=== PATIENT | male | born 1940 ===

== ENCOUNTER 2019-11-19 08:16 | Outpatient (REF) | payer MEDICARE, SELFPAY ==
[2019-11-19 11:03] LABS: Basophils Percent Auto 0.6 % (0-2); Eosinophils Absolute Auto 0.4 X10*3/uL (0.0-0.4); Eosinophils Percent Auto 6.4 % (0-4); Hematocrit 35.1 % (42-52); Hemoglobin 11.2 g/dl (14.0-18.0); Imm Gran Abs Auto 0.01 X10*3/uL (0.00-0.03); Imm Gran Pct Auto 0.2 % (0.0-0.4); Immature Retic Fraction 28.8 % (2.3-13.4); MANUAL DIFF FLAG NO; Mean Corpuscular HGB Conc 31.9 g/dl (31.0-36.0); Mean Corpuscular Hemoglobin 25.1 pg (27.0-33.0); Mean Corpuscular Volume 78.5 fL (80-98); Monocytes Absolute Auto 0.6 X10*3/uL (0.1-1.2); Neutrophils Absolute Auto 3.5 X10*3/uL (2.0-8.3); Neutrophils Percent Auto 53.8 % (45-73); Platelet Count 284 X10*3/uL (160-400); Red Blood Count 4.47 X10*6/uL (4.60-5.80); Red Cell Distribution Width 17.2 % (11.0-16.0); Retic HGB Equivalent 25.1 pg (30.0-35.0); Reticulocyte Percent 1.1 % (0.5-1.8); Reticulocytes Absolute 0.047 X10*6/uL (0.026-0.095); White Blood Count 6.5 X10*3/uL (4.8-10.8)
[2019-11-19 11:33] LABS: Cholesterol 150 mg/dL; HDL Cholesterol 42 mg/dL; Iron 24 mcg/dL (45-160); LDL Cholesterol Calculated 90 mg/dl; Percent Iron Saturation 6 % (15-50); Total Iron Binding Capacity 388 mcg/dL (228-428); Triglycerides 94 mg/dL; Unsaturated Iron Binding 364 ug/dL
[2019-11-19 11:54] LABS: Ferritin 21 ng/mL (20-250); Thyroid Stimulating Hormone 2.15 mIU/mL (0.32-4.0)
[2019-11-19 12:15] LABS: Folate 7.4 ng/mL (> or = 4.0); Vitamin B12 461 pg/mL (200-900)
== END 2019-11-19 08:17 | disposition home or self-care (01) ==
LOC: HO.HSH4W 08:16
PROVIDERS: Visit Provider Internal Medicine
DX: E78.5 Hyperlipidemia, unspecified (principal); I10 Essential (primary) hypertension
CPT/HCPCS: 36415; 80061; 82607; 82728; 82746; 83540; 84443; 85025; 85045

== ENCOUNTER 2019-11-19 10:03 | Emergency (ER) | payer OTHER, SELFPAY ==
[2019-11-19] VITALS (7 sets, daily range): BP systolic 108–141; BP diastolic 50–84; PULSE 58–85; RESP 17–20; TEMP 36.5–37.1; O2SAT 95–98; BMI 37.0
--- NOTE | 2019-11-19 10:11 | ECG_ITS ---
Test Reason : WEAKNESS Blood Pressure : / mmHG Vent. Rate : 060 BPM Atrial Rate : 071 BPM P-R Int : 000 ms QRS Dur : 086 ms QT Int : 442 ms P-R-T Axes : 000 000 -31 degrees QTc Int : 442 ms Atrial fibrillation Nonspecific ST abnormality Low voltage QRS RSR' or QR pattern in V1 suggests right ventricular conduction delay Abnormal ECG When compared with ECG of 24-OCT-2018 14:08, Heart rate has decreased Referred By: Vernell Ceballos Electronically Signed By:PHILL HOWARD MD
--- NOTE | 2019-11-19 10:14 | ED_ITS ---
HPI - Syncope General Chief Complaint: Syncope Stated Complaint: SYNCOPAL EPISODE ON TOILET Time Seen by Provider: 11/19/19 10:14 Source: patient and EMS Mode of arrival: EMS Limitations: altered mental status (dementia) History of Present Illness HPI narrative: 79 yo male with hx of HTN, CAD, HPL, DVT on xarelto, afib here with witnessed syncope no trauma was working with PT and had large BM, then had syncopal episode witnessed no trauma, currenlty the patient has no complaints MD complaint: loss of consciousness Onset (ago): minute(s) -: second(s) Prodromal symptoms: other (having BM) Witnessed: Yes - by Other (staff/PT) Context: other (after BM) Injuries sustained associated with event: none Current symptoms: none Treatments prior to arrival: none Related Data Allergies Allergy/AdvReac Type Severity Reaction Status Date / Time No Known Allergies Allergy Verified 11/19/19 10:15 [No Known Allergies*] Review of Systems Review of Systems: ROS unable to be obtained due to altered mental status [facility] Past Medical History Medical History (Updated 11/19/19 @ 14:09 by Vernell Ceballos DO) A-fib CAD (coronary artery disease) Dementia DVT (deep venous thrombosis) HTN (hypertension) Surgical History (Updated 11/19/19 @ 10:16 by Vernell Ceballos DO) Hx of cholecystectomy S/P IVC filter Social History Social History (Updated 11/19/19 @ 10:17 by Vernell Ceballos DO) Alcohol intake: never Smoking Status: Former smoker Use of substances other than those prescribed or required for medical reasons: No Advance Directives: No Advance Directives Information Provided: No Physical Exam Vital Signs and I&O and Narrative: Vital Signs and I&O: Vital Signs Temp 97.7 F 11/19/19 12:16 Pulse 78 11/19/19 13:49 Resp 17 11/19/19 12:16 BP 140/77 H 11/19/19 13:49 Pulse Ox 97 11/19/19 12:16 Intake & Output 11/18/19 11/19/19 11/19/19 18:59 06:59 18:59 Intake Total 500 / 500 Balance 500 / 500 Weight 110.677 kg Intake: Intake, IV Amoun t 500 / 500 0.9 % Sodium C hloride 500 ml @ 500 / 500 1000 mls/hr IV .Q30M [facility] Rx#: [id number] Body Mass Index 37.0 Appearance: Alert. but confused No acute distress. Eyes: Pupils equal, round and reactive to light. ENT: Pharynx normal. Neck: Normal inspection. Neck supple. CVS: irregular, bradycardic Pulses normal. Respiratory: No respiratory distress. Breath sounds normal. Abdomen: Soft and nontender. Skin: Skin warm and dry. Normal skin color. Normal skin turgor. Extremities: No lower extremity edema. No lower extremity edema. Neuro: alert but confused. No motor deficit. No sensory deficit. Course Course Course Narrative: will repeat troponin, gentle hydration ordered, the patient has no complaints, negative ortho VS, if repeat trop negative will DC back to facility Reevaluation(s) Reevaluation #1: repeat troponin negative Reevaluation #2: UA negative for infection, stable for DC MDM - Syncope Lab Data Result diagrams: 11/19/19 11:08 11/19/19 11:09 Labs: Lab Results 11/19/19 11/19/19 11/19/19 Range/Units 11:08 11:08 11:09 WBC 11.3 H (4.8-10.8) X10*3/uL RBC 4.37 L (4.60-5.80) X10*6/uL Hgb 10.6 L (14.0-18.0) g/dl Hct 34.8 L (42-52) % MCV 79.6 L (80-98) fL MCH 24.3 L (27.0-33.0) pg MCHC 30.5 L (31.0-36.0) g/dl RDW 17.2 H (11.0-16.0) % Plt Count 263 (160-400) X10*3/uL MPV 9.4 (9.4-12.4) fL Immature Gran % (Auto) 0.4 (0.0-0.4) % Neut % (Auto) 79.7 H (45-73) % Lymph % (Auto) 10.5 L (20-40) % [place] % (Auto) 7.6 (2-11) % Eos % (Auto) 1.5 (0-4) % Baso % (Auto) 0.3 (0-2) % Neut # (Auto) 9.0 H (2.0-8.3) X10*3/uL Lymph # (Auto) 1.2 (1.2-4.9) X10*3/uL [place] # (Auto) 0.9 (0.1-1.2) X10*3/uL Eos # (Auto) 0.2 (0.0-0.4) X10*3/uL Baso # (Auto) 0.0 (0.0-0.2) X10*3/uL Abs Immat Gran (auto) 0.04 H (0.00-0.03) X10*3/uL Absolute Nucleated RBC 0.000 (0.0-0.012) X10*3/uL Nucleated RBC % (auto) 0.0 (0.0-0.2) /100WBC Hold Blue Top SEE NOTE Sodium 139 (135-145) mmol/L Potassium 4.1 (3.3-5.1) mmol/l Chloride 107 (96-108) mmol/L Carbon Dioxide 24 (22-29) mmol/L Anion Gap 12 (12-20) BUN 18 H (9-16) mg/dL Creatinine 1.42 H (0.5-1.4) mg/dL Estim Creat Clear Calc 49.2 Estimated GFR 48 Random Glucose 106 (60-115) mg/dL Calcium 8.8 (8.4-10.2) mg/dL Magnesium 2.2 (1.6-2.6) mg/dL Total Bilirubin 0.6 (0.0-1.0) mg/dL Direct Bilirubin 0.2 (0.0-0.5) mg/dL AST 14 (5-37) U/L ALT 21 (0-40) U/L Alkaline Phosphatase 68 (39-117) U/L Troponin I High Sens (<3.5-35.0) ng/L Total Protein 6.8 (6.5-8.0) g/dL Albumin 4.0 (3.5-5.0) g/dL Urine Color Urine Appearance Urine pH (5.0-8.0) Ur Specific Harold (1.005-1.025) Urine Protein (NEG-TRACE) MG/DL Urine Glucose (UA) (NEG) MG/DL Urine Ketones (NEG) MG/DL Urine Blood (NEG) Urine Nitrite (NEG) Ur Leukocyte Esterase (NEG) Urine RBC (0) /HPF Urine WBC (0-4) /HPF Ur Squamous Epith Cells /LPF Urine Bacteria /LPF Urine Sperm 11/19/19 11/19/19 11/19/19 Range/Units 11:09 14:08 15:09 WBC (4.8-10.8) X10*3/uL RBC (4.60-5.80) X10*6/uL Hgb (14.0-18.0) g/dl Hct (42-52) % MCV (80-98) fL MCH (27.0-33.0) pg MCHC (31.0-36.0) g/dl RDW (11.0-16.0) % Plt Count (160-400) X10*3/uL MPV (9.4-12.4) fL Immature Gran % (Auto) (0.0-0.4) % Neut % (Auto) (45-73) % Lymph % (Auto) (20-40) % [place] % (Auto) (2-11) % Eos % (Auto) (0-4) % Baso % (Auto) (0-2) % Neut # (Auto) (2.0-8.3) X10*3/uL Lymph # (Auto) (1.2-4.9) X10*3/uL [place] # (Auto) (0.1-1.2) X10*3/uL Eos # (Auto) (0.0-0.4) X10*3/uL Baso # (Auto) (0.0-0.2) X10*3/uL Abs Immat Gran (auto) (0.00-0.03) X10*3/uL Absolute Nucleated RBC (0.0-0.012) X10*3/uL Nucleated RBC % (auto) (0.0-0.2) /100WBC Hold Blue Top Sodium (135-145) mmol/L Potassium (3.3-5.1) mmol/l Chloride (96-108) mmol/L Carbon Dioxide (22-29) mmol/L Anion Gap (12-20) BUN (9-16) mg/dL Creatinine (0.5-1.4) mg/dL Estim Creat Clear Calc Estimated GFR Random Glucose (60-115) mg/dL Calcium (8.4-10.2) mg/dL Magnesium (1.6-2.6) mg/dL Total Bilirubin (0.0-1.0) mg/dL Direct Bilirubin (0.0-0.5) mg/dL AST (5-37) U/L ALT (0-40) U/L Alkaline Phosphatase (39-117) U/L Troponin I High Sens 9.3 7.8 (<3.5-35.0) ng/L Total Protein (6.5-8.0) g/dL Albumin (3.5-5.0) g/dL Urine Color YELLOW Urine Appearance CLEAR Urine pH 6.0 (5.0-8.0) Ur Specific Harold 1.020 (1.005-1.025) Urine Protein NEG (NEG-TRACE) MG/DL Urine Glucose (UA) NEG (NEG) MG/DL Urine Ketones NEG (NEG) MG/DL Urine Blood 3+ H (NEG) Urine Nitrite NEG (NEG) Ur Leukocyte Esterase NEG (NEG) Urine RBC 15-29 H (0) /HPF Urine WBC 0 (0-4) /HPF Ur Squamous Epith Cells TRACE /LPF Urine Bacteria 1+ /LPF Urine Sperm NOTED ECG Data ECG interpretation date: 11/19/19 ECG interpretation time: 10:14 Interpretation: Rate: 60 Rhythm: atrial fibrillation [place]: normal Normal QRS complex. ST T wave : nonspecific lateral leads qTC:normal prior studies: no acute ischemia unchanged 2019 The study has been interpreted contemporaneously by me. . Discharge Plan Discharge Clinical Impression: Vasovagal syncope, Dehydration Patient Disposition: er [facility] Instructions: Dehydration (ED), Syncope (ED) Referrals: Rdoolfo Blakely MD [Primary Care Provider] - 2 days (if not better)
--- NOTE | 2019-11-19 10:46 | PC.NURSE ---
pt's daughter to be called with questions and updates. Luba Butler [phone]
[2019-11-19 11:17] LABS: MANUAL DIFF FLAG NO
[2019-11-19 11:21] LABS: Basophils Percent Auto 0.3 % (0-2); Eosinophils Absolute Auto 0.2 X10*3/uL (0.0-0.4); Eosinophils Percent Auto 1.5 % (0-4); Hematocrit 34.8 % (42-52); Hemoglobin 10.6 g/dl (14.0-18.0); Imm Gran Abs Auto 0.04 X10*3/uL (0.00-0.03); Imm Gran Pct Auto 0.4 % (0.0-0.4); Lymphocytes Absolute Auto 1.2 X10*3/uL (1.2-4.9); Lymphocytes Percent Auto 10.5 % (20-40); Mean Corpuscular HGB Conc 30.5 g/dl (31.0-36.0); Mean Corpuscular Hemoglobin 24.3 pg (27.0-33.0); Mean Corpuscular Volume 79.6 fL (80-98); Mean Platelet Volume 9.4 fL (9.4-12.4); Monocytes Absolute Auto 0.9 X10*3/uL (0.1-1.2); Monocytes Percent Auto 7.6 % (2-11); Neutrophils Percent Auto 79.7 % (45-73); Platelet Count 263 X10*3/uL (160-400); Red Blood Count 4.37 X10*6/uL (4.60-5.80); Red Cell Distribution Width 17.2 % (11.0-16.0); White Blood Count 11.3 X10*3/uL (4.8-10.8)
[2019-11-19 11:44] LABS: Alanine Aminotransferase 21 U/L (0-40); Alkaline Phosphatase 68 U/L (39-117); Anion Gap 12 (12-20); Aspartate Amino Transferase 14 U/L (5-37); Bilirubin Direct 0.2 mg/dL (0.0-0.5); Bilirubin Total 0.6 mg/dL (0.0-1.0); Blood Urea Nitrogen 18 mg/dL (9-16); Calcium 8.8 mg/dL (8.4-10.2); Carbon Dioxide 24 mmol/L (22-29); Chloride 107 mmol/L (96-108); Creatinine Clr Calc Pharmacy 49.2; Estimated Glomerular Filt Rate 48; Glucose Random 106 mg/dL (60-115); Magnesium 2.2 mg/dL (1.6-2.6); Potassium 4.1 mmol/l (3.3-5.1); Sodium 139 mmol/L (135-145); Total Protein 6.8 g/dL (6.5-8.0)
[2019-11-19 11:48] LABS: Troponin-I High Sensitivity 9.3 ng/L (<3.5-35.0)
[2019-11-19] MEDS: 0.9 % Sodium Chloride 500 ML 1000 ML IV (12:23)
[2019-11-19 14:40] LABS: Troponin-I High Sensitivity 7.8 ng/L (<3.5-35.0)
[2019-11-19 15:18] LABS: Glucose Urine UA NEG (NEG); Leukocyte Esterase Urine NEG (NEG); Nitrite Urine NEG (NEG); Urine Blood 3+ (NEG); Urine Ketones NEG (NEG); Urine Protein NEG (NEG-TRACE)
[2019-11-19 15:20] LABS: Appearance Urine CLEAR; Color Urine YELLOW
[2019-11-19 15:29] LABS: WBC Urine 0 /HPF (0-4)
[2019-11-19 15:30] LABS: Bacteria Urine 1+ /LPF; Sperm Urine NOTED; Squamous Epithelial Cell Urine TRACE /LPF
== END 2019-11-19 16:34 ==
PROVIDERS: Emergency Provider Emergency Medicine; PCP Internal Medicine Interventional Cardiology
DX: R55 Syncope and collapse (principal); E86.0 Dehydration; Z87.891 Personal history of nicotine dependence; Z79.899 Other long term (current) drug therapy
CPT/HCPCS: 36415; 80048; 80076; 81001; 83735; 84484; 85025; 93005; 99285

== ENCOUNTER 2019-11-21 06:51 | Outpatient (REF) | payer OTHER, MEDICARE, SELFPAY ==
[2019-11-21 13:56] LABS: Alanine Aminotransferase 17 U/L (0-40); Albumin Level 3.6 g/dL (3.5-5.0); Alkaline Phosphatase 60 U/L (39-117); Anion Gap 12 (12-20); Aspartate Amino Transferase 14 U/L (5-37); Bilirubin Total 0.6 mg/dL (0.0-1.0); Blood Urea Nitrogen 17 mg/dL (9-16); Calcium 8.4 mg/dL (8.4-10.2); Carbon Dioxide 24 mmol/L (22-29); Chloride 107 mmol/L (96-108); Estimated Glomerular Filt Rate > 60; Glucose Fasting 83 mg/dL (60-99); Potassium 3.9 mmol/l (3.3-5.1); Sodium 139 mmol/L (135-145); Total Protein 6.2 g/dL (6.5-8.0)
== END 2019-11-21 06:52 | disposition home or self-care (01) ==
LOC: HO.HSH4W 06:51
PROVIDERS: Visit Provider Internal Medicine
DX: I25.10 Atherosclerotic heart disease of native coronary artery without angina pectoris (principal); I10 Essential (primary) hypertension
CPT/HCPCS: 80053

== ENCOUNTER 2020-01-15 09:19 | Emergency (ER) | payer OTHER, MEDICARE, SELFPAY ==
--- NOTE | 2020-01-15 09:17 | ED_ITS ---
HPI - Extremity Injury (Lower) General Chief Complaint: General Medical Stated Complaint: hip pain Time Seen by Provider: 01/15/20 09:25 Source: EMS Mode of arrival: EMS Limitations: other (dementia) History of Present Illness HPI Narrative: Patient is demented, home health aid called EMS for right hip pain, atraumatic Onset (ago): hour(s) Injury: Right: hip Relieving factors: nothing Exacerbating factors: nothing Related Data Allergies Allergy/AdvReac Type Severity Reaction Status Date / Time No Known Allergies Allergy Verified 11/19/19 10:15 [No Known Allergies*] Review of Systems Review of Systems: Yes Unobtainable due to mental status (dementia) Neurologic: Denies Sensory deficit (Neuro) [facility] Past Medical History Medical History (Updated 01/15/20 @ 10:38 by Jonathan Winston MD) A-fib CAD (coronary artery disease) Dementia DVT (deep venous thrombosis) HTN (hypertension) Surgical History (Updated 11/19/19 @ 10:16 by Vernell Ceballos DO) Hx of cholecystectomy S/P IVC filter Social History Social History (Updated 11/19/19 @ 10:17 by Vernell Ceballos DO) Alcohol intake: never Smoking Status: Former smoker Advance Directives: No Advance Directives Information Provided: No Physical Exam Vital Signs: Vital Signs: Last Vital Signs Temp 97.8 F 01/15/20 09:26 Pulse 71 01/15/20 09:26 Resp 18 01/15/20 09:26 BP 161/96 H 01/15/20 09:31 Pulse Ox 98 01/15/20 09:26 Body Mass Index 35.5 Const: General: comfortable Nutritional Appearance: obese Orientation/consciousness: oriented to person HENMT: Head: Yes normal to inspection Ears: external ears normal General nose exam: Normal external nose present Mouth: Normal oral and palatal mucosa present and oropharynx normal Throat: Yes posterior oropharynx normal Eyes: General: appearance normal, both eyes and all related structures Neck: Other: supple Neck: Yes normal visual inspection Chest: Chest palpation & inspection: normal inspection of the chest Resp: Auscultation: clear to auscultation bilaterally Cardio: Jugular venous distension: no JVD Rate: regular rate Rhythm: regular rhythm Heart sounds: S1 normal heart sound present and S2 normal heart sound present GI: Inspection: Yes normal to inspection Palpation (GI): Soft to palpation, nontender and No hepatosplenomegaly present Auscultation: normal bowel sounds : General: Yes no CVA tenderness Back/Spine/Pelvis: Back: no CVA tenderness Skin: General skin exam: no rashes or lesions noted Neuro: General: oriented to person Cranial nerves: Yes CN's II-XII intact bilaterally Motor exam (neuro): 5/5 motor strength present throughout Sensory Exam: No Sensory deficit (Neuro) Extrem: Other: full range of motion to right hip, no deformity, no rash Psych: Appearance: grossly normal Course Course Course Narrative: no acute injury will dc home MDM - Extremity Injury (Lower) MDM Narrative Medical decision making narrative: Arthritic changes nothing acute Imaging Data hip: Radiologist's impression: no acute changes, arthritis Discharge Plan Discharge Clinical Impression: Arthritis Patient Disposition: Home, Self-Care Instructions: Arthritis (ED) Additional Instructions: tylenol three times a day for pain Referrals: Physician,Unknown [Primary Care Provider] - 2 days
[2020-01-15 09:26] VITALS: BP 156/90; BP 179/87; PULSE 71; PULSE 78; RESP 18; TEMP 36.6; O2SAT 97; O2SAT 98; BMI 35.5
[2020-01-15 09:31] VITALS: BP 161/96
--- NOTE | 2020-01-15 09:31 | XR_ITS ---
EXAMINATION: XR HIP, RIGHT CLINICAL INFORMATION: Right hip pain. COMPARISON: None TECHNIQUE: Two views of the right hip. FINDINGS: There is no visible acute fracture, dislocation or subluxation. No bony erosive changes. The soft tissues are normal. XR/XR hip RT w [id number] IMPRESSION: Unremarkable right hip exam.
[2020-01-15] MEDS: Acetaminophen 325 MG TABLET 975 MG PO (10:10)
--- NOTE | 2020-01-15 11:22 | PC.NURSE ---
pt was assisted by 2 RN, able to get up from bed assisted and able to ambulate with walker without assistance from staff. daughter called and updated as she had requested he ambulate before he return home. per daughter pt is 2 total assist at home, uses wheelchair and walker to transfer. daughter states that she has been in touch with patients PCP over the past few days and has been trying different meds for pain management. encouraged daughter to call pcp again and notify them of ER visit/findings to see if other meds or work up needed. daughter agreeable.
[2020-01-15 11:40] VITALS: BP 150/87; PULSE 63; RESP 16; TEMP 36.6; O2SAT 99
--- NOTE | 2020-01-15 12:00 | PC.NURSE ---
SON TO PICK PT UP FROM ED
== END 2020-01-15 13:04 | disposition home or self-care (01) ==
PROVIDERS: Emergency Provider Emergency Medicine
DX: M16.11 Unilateral primary osteoarthritis, right hip (principal); M25.551 Pain in right hip; Z79.899 Other long term (current) drug therapy
CPT/HCPCS: 73502; 99283

== ENCOUNTER → 2020-02-04 09:36 | Outpatient (REF) | payer OTHER, MEDICARE, SELFPAY ==
--- NOTE | 2020-02-04 | XR_ITS ---
EXAMINATION: XR CERVICAL SPINE XR THORACIC SPINE CLINICAL INFORMATION: Back pain COMPARISON: Chest radiographs 04/19/2018, lumbar radiographs 02/04/2020. TECHNIQUE: Cervical spine is imaged in AP and lateral views. The thoracic spine is imaged in 4 views including lateral view coned to the cervicothoracic junction. There are a total of 6 views. Technologist notes technically challenging exam, patient unable to turn on side. Radiographs optimized to patient capabilities. FINDINGS: Cervical spine: The cervicothoracic junction is not well visualized on the lateral views due to superimposition of the shoulder attenuation. There is straightening and mild reversal cervical lordosis. The odontoid appears intact. There is no visible vertebral compression or destructive process or prevertebral soft tissue swelling. Degenerative disc changes are present at C4-C5 and C5-C6 and likely at C6-C7 with disc narrowing and vertebral spurring. There is 2 mm spondylolisthesis at C3-C4. No focal fanning of the posterior elements. There are multilevel mild degenerative changes facets. There are atherosclerotic calcifications mid left carotid artery. Thoracic spine: Lateral views show suboptimal contrast. There is normal thoracic segmentation with 12 rib-bearing thoracic vertebrae of normal height and normal thoracic kyphosis. There is no visible vertebral compression or spondylolisthesis, destructive process, or paraspinal soft tissue swelling. There are multilevel degenerative changes with anterior and lateral multilevel thoracic vertebral spurring. There are atherosclerotic calcifications thoracic aorta. XR/XR cervical spine 3V IMPRESSION: 1. Degenerative changes C4-C5, C5-C6, and C6-C7. Spondylolisthesis 2 mm at C3-C4. 2. Multilevel thoracic vertebral body spurring. 3. Left carotid atherosclerotic calcifications. 4. Technical patient study limitations.
--- NOTE | 2020-02-04 | XR_ITS ---
EXAMINATION: XR LUMBOSACRAL SPINE CLINICAL INFORMATION: Back pain COMPARISON: Radionuclide bone scan 02/04/2020, CT abdomen and pelvis 04/19/2018, radiographs lumbar spine 03/14/2017; radiographs thoracic spine 02/04/2020. TECHNIQUE: Three views of the lumbosacral spine. FINDINGS: There is normal lumbar segmentation with 5 nonrib-bearing lumbar vertebrae of normal height and normal lumbar lordosis. There is gentle levocurvature lumbar spine. Multilevel degenerative disc and degenerative facet changes are again seen with variable disc narrowing and endplate sclerosis and vertebral spurring. There is vacuum disc again noted at lumbosacral junction. There is no vertebral compression or fracture or destructive process. No interval spondylolisthesis. There is an IVC filter noted and extensive atherosclerotic calcifications aorta and bilateral common iliac arteries. Distal aortic aneurysm with bilateral common iliac enlargement is again present. AP distal aortic dimension 4.7 cm (not allowing for magnification) on current lateral view and 4.4 cm (not allowing for magnification) on prior lateral view 2017. CT dimension 3.5 cm. XR/XR lumbar spine 2-3V IMPRESSION: 1. Multilevel degenerative disc and degenerative facet changes. 2. No lumbar vertebral compression, spondylolisthesis, destructive process. 3. Known distal abdominal aortic aneurysm and bilateral common iliac ectasia. CT abdomen and pelvis would be helpful to allow for accurate assessment for interval change in size since prior CT 04/19/2018.
--- NOTE | 2020-02-04 | NM_ITS ---
EXAMINATION: NM BONE SCAN OF THE WHOLE BODY CLINICAL INFORMATION: Back pain for 4 weeks. Worsening lately. COMPARISON: Chest x-ray 03/17/2019. TECHNIQUE: Multiple gamma scintillation camera images of the whole body were performed 2.5 hours following the intravenous administration of 36 mCi Tc-99m MDP. FINDINGS: In the head, unremarkable. In the thoracic cage and upper extremities, unremarkable. In the spine, there is mild focal activity seen along the right L1-L2 and L2-L3 facet joints to the right of lumbar spine likely from facet joint arthritis. No abnormal activity seen in the spine to suspect any acute fracture on this study. In the pelvis, unremarkable. In the lower extremities, unremarkable. No other definite bony abnormalities are noted. The urinary bladder and faint visualization of both kidneys are noted. NM/NM bone scan whole body IMPRESSION: No abnormal activity seen in the spine to suspect any fracture. Mild focal activity right of lumbar spine at L1-L2 and L2-L3 disc levels most likely facet joint arthropathy.
== END ==
LOC: HO.NUCMED 09:36
PROVIDERS: PCP Internal Medicine Medical Oncology; Visit Provider Internal Medicine Medical Oncology
DX: M54.9 Dorsalgia, unspecified (principal)
CPT/HCPCS: 72040; 72072; 72100; 78306; A9503

== ENCOUNTER 2020-12-02 13:02 | Inpatient (IN) | payer OTHER, SELFPAY ==
--- NOTE | 2020-12-02 | ECG_ITS ---
Test Reason : repeat Blood Pressure : / mmHG Vent. Rate : 056 BPM Atrial Rate : 000 BPM P-R Int : 000 ms QRS Dur : 082 ms QT Int : 464 ms P-R-T Axes : 000 -25 017 degrees QTc Int : 447 ms Atrial fibrillation with slow ventricular response Low voltage QRS Nonspecific ST abnormality Abnormal ECG When compared with ECG of 02-DEC-2020 14:47, No significant changes seen Referred By: Ada Medina Electronically Signed By:PHILL HOWARD MD
--- NOTE | ~2020-12-02 | MR_ITS ---
MRI OF THE BRAIN WITHOUT IV CONTRAST INDICATION: Question stroke. COMPARISON: CTA head and neck 12/02/2020 and brain MRI 11/24/2016. TECHNIQUE: Multiplanar multisequence MR imaging of the brain was obtained without IV contrast. FINDINGS: There are a few possible small acute infarcts within the left parietal lobe there are hard to definitively assess given the degree of extensive motion artifact on the diffusion series. No mass effect and no hemorrhagic transformation. There is global cerebral volume loss with a severe temporal lobe predominance and there are chronic infarcts within the right INSIGHT DIRECTOR territory as well as the frontal and parietal lobes bilaterally. There are also chronic lacunar infarcts within the cerebellar hemispheres bilaterally, the central hailey, and the deep méndez nuclei bilaterally. There is no hydrocephalus, extra-axial surface collection, or herniation. Partially attenuated flow-voids intracranially going along with the vascular findings established on the CTA of the head and neck from 12/02/2020. Please see that report for further details. Probable small focus of chronic hemosiderin staining within the right centrum semiovale. The cerebellar tonsils are normally positioned. The craniocervical junction is normal. Osseous marrow signal intensity is homogenous. The visualized soft tissues are unremarkable. Mild mucosal thickening within the ethmoid air cells and maxillary sinuses bilaterally. The left frontal sinus is completely opacified. MR/MR head/brain wo con IMPRESSION: - There are a few possible small acute infarcts within the left parietal lobe there are hard to definitively assess given the degree of extensive motion artifact on the diffusion series. No mass effect and no hemorrhagic transformation. - There is global cerebral volume loss with a severe temporal lobe predominance and there are chronic infarcts within the right INSIGHT DIRECTOR territory as well as the frontal and parietal lobes bilaterally. There are also chronic lacunar infarcts within the cerebellar hemispheres bilaterally, the central hailey, and the deep méndez nuclei bilaterally. - Mild mucosal thickening within the ethmoid air cells and maxillary sinuses bilaterally. The left frontal sinus is completely opacified.
--- NOTE | ~2020-12-02 | CT_ITS ---
EXAMINATION: CT ANGIOGRAM HEAD CT ANGIOGRAM NECK CLINICAL INFORMATION: Altered mental status. COMPARISON: CT head from 10/23/2018. Brain MRI from 11/24/2016. CTA head and neck from 11/24/2016. TECHNIQUE: Initial noncontrast bilingual teacher assistant imaging of the head and neck was performed. Noncontrast head CT was also performed. Test bolus sequences followed by intravenous administration 70 mL of Omnipaque 350. Helical imaging was performed in the axial plane from the aortic arch to the skull vertex. Delayed postcontrast imaging of the head was also performed. The data was processed at the radiologic technologist chief's workstation for generation of MIP sequences. Angled MIPs and volume rendered reformatted images were also generated at an offline 3D workstation. Stenoses are assessed in accordance with NASCET criteria unless otherwise indicated. This CT examination was performed using dose optimization techniques as appropriate, variously including the following: *Automated exposure control. *Adjustment of mA and/or kV according to patient size (this includes techniques or standardized protocols for targeted exams where dose is matched to indication/reason for exam; i.e. extremities or head). *Use of iterative reconstruction technique. DLP: 2737 mGy-cm FINDINGS: CT Head: There is no evidence of acute intracranial hemorrhage or edematous territorial infarction. Chronic encephalomalacia of the right occipitoparietal lobes. Confluent hypoattenuation in the periventricular and deep white matter. Bal-white matter differentiation is preserved. Proportional prominence of the ventricles and sulcal spaces. No evidence for obstructive hydrocephalus. No abnormal mass effect or midline shift. No extra-axial fluid collections. No pathologic intra-axial enhancement. No acute soft tissue or osseous abnormalities. Moderate mucosal thickening of the paranasal sinuses. Near complete opacification of the left frontal sinus. The mastoid air cells and middle ear cavities are clear. Prominent odontogenic enamel erosions and periapical lucencies. There is erosion of the outer wall of the alveolar process of the maxilla associated with the right incisors. CT Neck: There is a 3.3 cm heterogeneous nodule in the left thyroid lobe. The thyroid gland and remaining cervical soft tissues are within normal limits. Reversal the normal cervical lordosis. Mild degenerative anterolisthesis of C3 on C4. Advanced degenerative disc disease from C4-T3. Facet and uncovertebral joint arthropathy leads to osseous encroachment on the neural foramina from C3-T1. CT Upper Chest: The visualized lung apices and upper mediastinum are within normal limits. Neck CTA: Aortic Arch: Normal contour and caliber with moderate calcific atherosclerotic disease. Classic 3 vessel branching pattern of the aortic arch. Great Vessel Origins: Calcific atherosclerotic disease of the great vessel origins without significant stenosis or occlusion. Right Common Carotid Artery: No focal stenosis or occlusion. Cervical Right Internal Carotid Artery: Heavy calcific atherosclerotic disease of the carotid bulb and proximal internal carotid artery causes 65% stenosis of the origin of the ICA. Multiple additional less than 50% stenoses of the proximal ICA. Moderate tortuosity. Left Common Carotid Artery: No focal stenosis or occlusion. There is subtotal occlusion of the origin of the left external carotid artery. Cervical Left Internal Carotid Artery: Mixed lipid rich and calcific atherosclerotic disease of the carotid bulb and proximal internal carotid artery causes 60% stenosis of the origin of the ICA. Cervical Right Vertebral Artery: Co-dominant. Atherosclerotic disease causes moderate narrowing of the origin. No additional focal stenosis or occlusion. Cervical Left Vertebral Artery: Co-dominant. Atherosclerotic disease causes mild narrowing of the origin. No additional focal stenosis or occlusion. Brain CTA: Intracranial Internal Carotid Arteries: Calcific atherosclerotic disease of the intracranial internal carotid arteries without occlusion or flow-limiting stenosis. Right Anterior Cerebral Artery: Normal A1 segment. Multifocal mild narrowings of the distal ESTRADA segments without occlusion. Left Anterior Cerebral Artery: Normal A1 segment. Multifocal mild to moderate narrowings of the A2 and distal ESTRADA segments without occlusion. Anterior Communicating Artery: Normal. Right Middle Cerebral Artery: Normal M1 segment of the MCA without focal stenosis or occlusion. Normal arborization of the distal segments. Mild multifocal narrowings of the M2 and distal segments. Left Middle Cerebral Artery: Normal M1 segment of the MCA without focal stenosis or occlusion. Normal arborization of the distal segments. There is a prominent stenosis of the origin of an M2 branch, similar to 2017. Otherwise, moderate multifocal narrowings of the M2 and distal segments. Right Vertebral Artery: Normal V4 segment. Normal opacification of the proximal segments of the posterior inferior cerebellar artery. Left Vertebral Artery: Normal V4 segment. Normal opacification of the proximal segments of the posterior inferior cerebellar artery. Basilar Artery: Normal without focal stenosis or occlusion. Normal appearance of the proximal superior cerebellar arteries. Right Posterior Cerebral Artery: Normal P1 segment. Normal opacification of the distal [place] segments. Left Posterior Cerebral Artery: Normal P1 segment. Normal opacification of the distal [place] segments. Normal opacification of the superior sagittal, straight, transverse, and sigmoid sinuses. CT/CT angio head neck IMPRESSION: 1. No evidence of acute intracranial hemorrhage or edematous territorial infarction. 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 Extensive underlying microangiopathy and generalized cerebral volume loss. 2. CTA of the head and neck without proximal occlusion. Atherosclerotic disease causes 60-65% stenoses of the origins of the internal carotid arteries bilaterally. 3. Moderate atherosclerotic disease of the A2 and M2 and distal branches of the ACAs and MCAs. 4. 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 5. 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
--- NOTE | ~2020-12-02 | XR_ITS ---
EXAMINATION: XR CHEST CLINICAL INFORMATION: Shortness of breath COMPARISON: 04/19/2018 TECHNIQUE: Frontal view of the chest was obtained. FINDINGS: Lungs are adequately expanded. Linear opacity of scarring or atelectasis in the inferior lingula. No evidence of pulmonary edema or consolidation. Cardiac silhouette is at the upper range of normal size. The hilar contours are normal. There is atherosclerotic calcification of the aorta. The visualized bones are intact. XR/XR chest 1V IMPRESSION: No acute pulmonary disease compared to 04/19/2018.
[2020-12-02 13:17] VITALS: BP 137/74; BP 154/80; PULSE 60; PULSE 65; RESP 16; TEMP 35.6; O2SAT 95; O2SAT 96; BMI 31.7
--- NOTE | 2020-12-02 14:07 | ED_ITS ---
HPI - General Adult General Chief complaint: Altered Mental Status <MICHELLE Dueñas - Last Filed: 12/02/20 18:07> Stated complaint: MORE CONFUSED THAN USUAL X'S 2 PER FAMILY <MICHELLE Dueñas - Last Filed: 12/02/20 18:07> Time Seen by Provider: 12/02/20 14:06 <MICHELLE Dueñas - Last Filed: 12/02/20 18:07> Source: family (Luba carrera, at bedside) <MICHELLE Dueñas Last Filed: 12/02/20 18:07> Mode of arrival: EMS <MICHELLE Dueñas - Last Filed: 12/02/20 18:07> Limitations: altered mental status <MICHELLE Dueñas - Last Filed: 12/02/20 18:07> History of Present Illness HPI narrative: 80-year-old male with a history of dementia, atrial fibrillation, coronary artery disease, DVT and hypertension who is on Eliquis presents with altered mental status that started this morning. . Patient lives with his daughter Luba, who is at bedside. Luba states that 3 days ago patient was weaker in his left leg and was dragging his left leg. He was still responsive, eating and drinking. He is incontinent at baseline and uses a walker at baseline. Luba stated that this morning at 5:30 a.m., patient was not able to focus on daughter. He was unable to speak. Usually patient can focus on the daughter and answer commands. Daughter states since this morning patient's eyes have been rolling up into his head. Prior to this, daughter states patient has seemed to indicate he has had a headache for the last few days. Daughter states that this is the same presentation that patient had last winter when he had some kind of CVA at [facility] <MICHELLE Dueñas - Last Filed: 12/02/20 18:07> Related Data Home medications: Home Medications Medication Instructions Recorded Confirmed carvedilol 6.25 mg tablet 1 tab PO BID 12/02/20 12/02/20 citalopram 10 mg tablet 1 tab PO DAILY 12/02/20 12/02/20 omeprazole 20 mg capsule,delayed 1 cap PO DAILY 12/02/20 12/02/20 release rivaroxaban 20 mg tablet (Xarelto) 1 tab PO DAILY 12/02/20 12/02/20 tamsulosin 0.4 mg capsule 1 cap PO DAILY 12/02/20 12/02/20 <MICHELLE Dueñas - Last Filed: 12/02/20 18:07> Allergies/adverse reactions: Allergies Allergy/AdvReac Type Severity Reaction Status Date / Time No Known Allergies Allergy Verified 12/02/20 20:47 [No Known Allergies*] <MICHELLE Dueñas - Last Filed: 12/02/20 18:07> Review of Systems Review of Systems: Yes Unobtainable due to mental status <MICHELLE Nieves Chi - Last Filed: 12/02/20 18:07> PMFSH Past Medical History Medical History: Medical History A-fib CAD (coronary artery disease) Dementia DVT (deep venous thrombosis) HTN (hypertension) <MICHELLE Dueñas - Last Filed: 12/02/20 18:07> Surgical History: Surgical History Hx of cholecystectomy S/P IVC filter <MICHELLE Dueñas - Last Filed: 12/02/20 18:07> Social History Social History: Social History Alcohol intake: never Patient Tobacco Use Status: Never used Tobacco Use of substances other than those prescribed or required for medical reasons: No Advance Directives: No Advance Directives Information Provided: No <MICHELLE Dueñas - Last Filed: 12/02/20 18:07> Physical Exam Vital Signs: Vital Signs: Last Vital Signs Temp 99.3 F 12/02/20 15:02 Pulse 65 12/02/20 20:43 Resp 18 12/02/20 20:43 BP 153/70 H 12/02/20 20:43 Pulse Ox 96 12/02/20 20:43 Body Mass Index 31.7 <MICHELLE Dueñas - Last Filed: 12/02/20 18:07> Vital Signs: Last Vital Signs Temp 99.3 F 12/02/20 15:02 Pulse 65 12/02/20 20:43 Resp 18 12/02/20 20:43 BP 153/70 H 12/02/20 20:43 Pulse Ox 96 12/02/20 20:43 Body Mass Index 31.7 <Cy Ortiz MD - Last Filed: 12/02/20 23:56> Const: General: other (responding only intermittently to commands) <MICHELLE Dueñas - Last Filed: 12/02/20 18:07> Nutritional Appearance: well nourished <MICHELLE Dueñas - Last Filed: 12/02/20 18:07> Limitations: altered mental status <MICHELLE Dueñas - Last Filed: 12/02/20 18:07> HENMT: Head: Yes normal to inspection and Yes normocephalic <MICHELLE Dueñas - Last Filed: 12/02/20 18:07> General nose exam: Normal external nose present <MICHELLE Dueñas - Last Filed: 12/02/20 18:07> Face and sinus: Yes normal facial exam <MICHELLE Dueñas - Last Filed: 12/02/20 18:07> Mouth: Normal oral and palatal mucosa present <MICHELLE Dueñas - Last Filed: 12/02/20 18:07> Throat: Yes posterior oropharynx normal <MICHELLE Dueñas - Last Filed: 12/02/20 18:07> Eyes: Other: Patient's eyes are looking up and to the left, and then rolled up in his head, he will not follow commands and will not open his eyes after my initial look <MICHELLE Dueñas - Last Filed: 12/02/20 18:07> Neck: Neck: Yes no lymphadenopathy, Yes trachea midline and Yes supple <MICHELLE Dueñas - Last Filed: 12/02/20 18:07> Resp: Effort & Inspection: normal respiratory effort <MICHELLE Dueñas Last Filed: 12/02/20 18:07> Auscultation: clear to auscultation bilaterally, no crackles, no rales, no rhonchi and no wheezes <MICHELLE Dueñas Last Filed: 12/02/20 18:07> Cardio: Rate: regular rate <MICHELLE Dueñas Last Filed: 12/02/20 18:07> Rhythm: regular rhythm <MICHELLE Dueñas - Last Filed: 12/02/20 18:07> Heart sounds: S1 normal heart sound present and S2 normal heart sound present <MICHELLE Dueñas Last Filed: 12/02/20 18:07> GI: Inspection: Yes normal to inspection <MICHELLE Dueñas Last Filed: 12/02/20 18:07> Palpation (GI): Soft to palpation, nontender and no guarding <MICHELLE Dueñas - Last Filed: 12/02/20 18:07> Percussion: Yes normal to percussion <MICHELLE Dueñas Last Filed: 12/02/20 18:07> Auscultation: normal bowel sounds <MICHELLE Dueñas Last Filed: 12/02/20 18:07> Skin: General skin exam: no rashes or lesions noted <MICHELLE Dueñas Last Filed: 12/02/20 18:07> Neuro: Other: Patient will not follow commands, cannot perform a neurological exam adequately Patient initially opened his eyes and then would not open them again. He is cruising his eyes shot. Patient did open mouth, but could not smile or stick out his tongue for me. patient to raise his arm, he is unable to do so. 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 <MICHELLE Dueñas Last Filed: 12/02/20 18:07> Course Course Course Narrative: 80-year-old demented male who lives with his daughter presents for 3 days of worsening mental status. Patient is unable to focus his eyes on his daughter, is unable to follow commands: these symptoms started this morning when daughter woke him up, so unclear onset. He has had a left foot drag that started 3 days ago, but is unable to walk this morning. Review of systems limited by his altered mental status. Daughter states no cough, prior to this morning patient was eating and drinking, Normal bowel movements, clear urine in depends. Troponin 11.3, was 9.3 on 11/18/20 EKG shows afib with bradycardia of 56, no STEMI Labs remarkable only for an INR of 1.3. Blood glucose 113.Lactic 1.2. Chest x- ray negative. Rectal temp 98.8?, repeat rectal temp 99.3?. Awaiting urine and CT/CTA Luba is patient's healthcare proxy. There is a copy of the MOLST at bedside.. Patient is a DN/DNI. Signed patient out to Dr. Ortiz, pending CT head, CTA head and neck, and urine <MICHELLE Dueñas - Last Filed: 12/02/20 18:07> Reevaluation(s) Reevaluation #1: This is a 80-year-old male brought in by his daughter for increased weakness in the left leg (patient usually shovel with the left leg) and patient is aphasic, unknown start time, patient had CT head/CTA which showed no acute finding, with no acute vascular occlusion. Case discussed with the daughter who also healthcare proxy, would like to admit the patient for further neurological inpatient evaluation. <Cy Ortiz MD - Last Filed: 12/02/20 23:56> Time: 20:35 <Cy Ortiz MD - Last Filed: 12/02/20 23:56> Medical Decision Making Medical Records Medical records reviewed: Yes I reviewed the patient's medical records. <Cy Ortiz MD - Last Filed: 12/02/20 23:56> Lab Data Lab results reviewed: Yes I reviewed the patient's lab results. <Cy Ortiz MD - Last Filed: 12/02/20 23:56> Result diagrams: : 12/02/20 14:44 12/02/20 14:44 <MICHELLE Dueñas - Last Filed: 12/02/20 18:07> Labs: Lab Results 12/02/20 12/02/20 12/02/20 Range/Units 14:44 14:44 14:44 WBC 6.6 (4.8-10.8) X10*3/uL RBC 4.57 L (4.60-5.80) X10*6/uL Hgb 12.7 L (14.0-18.0) g/dl Hct 38.9 L (42-52) % MCV 85.1 (80-98) fL MCH 27.8 (27.0-33.0) pg MCHC 32.6 (31.0-36.0) g/dl RDW 16.0 (11.0-16.0) % Plt Count 235 (160-400) X10*3/uL MPV 9.2 L (9.4-12.4) fL Immature Gran % (Auto) 0.2 (0.0-0.4) % Neut % (Auto) 56.9 (45-73) % Lymph % (Auto) 25.9 (20-40) % [place] % (Auto) 11.6 H (2-11) % Eos % (Auto) 4.6 H (0-4) % Baso % (Auto) 0.8 (0-2) % Lymph # (Auto) 1.7 (1.2-4.9) X10*3/uL [place] # (Auto) 0.8 (0.1-1.2) X10*3/uL Eos # (Auto) 0.3 (0.0-0.4) X10*3/uL Baso # (Auto) 0.1 (0.0-0.2) X10*3/uL Abs Immat Gran (auto) 0.01 (0.00-0.03) X10*3/uL Absolute Neuts (auto) 3.8 (2.0-8.3) X10*3/uL Absolute Nucleated RBC 0.000 (0.0-0.012) X10*3/uL Nucleated RBC % (auto) 0.0 (0.0-0.2) /100WBC PT (9.9-13.0) SEC INR (0.9-1.1) APTT (24.1-38.0) SEC Sodium 138 (135-145) mmol/L Potassium 4.4 (3.3-5.1) mmol/L Chloride 106 (96-108) mmol/L Carbon Dioxide 25 (22-29) mmol/L Anion Gap 11 L (12-20) BUN 13 (9-16) mg/dL Creatinine 1.11 (0.5-1.4) mg/dL Estim Creat Clear Calc 60.9 Estimated GFR > 60 POC Glucose (60-115) mg/dL Random Glucose 110 (60-115) mg/dL Lactic Acid 1.2 (0.5-2.0) mmol/L Calcium 9.1 D (8.4-10.2) mg/dL Troponin I High Sens (<3.5-35.0) ng/L Urine Color Urine Appearance Urine pH (5.0-8.0) Ur Specific [place] (1.005-1.025) Urine Protein (NEG-TRACE) MG/DL Urine Glucose (UA) (NEG) MG/DL Urine Ketones (NEG) MG/DL Urine Blood (NEG) Urine Nitrite (NEG) Ur Leukocyte Esterase (NEG) 12/02/20 12/02/20 12/02/20 Range/Units 14:44 14:44 14:53 WBC (4.8-10.8) X10*3/uL RBC (4.60-5.80) X10*6/uL Hgb (14.0-18.0) g/dl Hct (42-52) % MCV (80-98) fL MCH (27.0-33.0) pg MCHC (31.0-36.0) g/dl RDW (11.0-16.0) % Plt Count (160-400) X10*3/uL MPV (9.4-12.4) fL Immature Gran % (Auto) (0.0-0.4) % Neut % (Auto) (45-73) % Lymph % (Auto) (20-40) % [place] % (Auto) (2-11) % Eos % (Auto) (0-4) % Baso % (Auto) (0-2) % Lymph # (Auto) (1.2-4.9) X10*3/uL [place] # (Auto) (0.1-1.2) X10*3/uL Eos # (Auto) (0.0-0.4) X10*3/uL Baso # (Auto) (0.0-0.2) X10*3/uL Abs Immat Gran (auto) (0.00-0.03) X10*3/uL Absolute Neuts (auto) (2.0-8.3) X10*3/uL Absolute Nucleated RBC (0.0-0.012) X10*3/uL Nucleated RBC % (auto) (0.0-0.2) /100WBC PT 14.7 H (9.9-13.0) SEC INR 1.3 H (0.9-1.1) APTT 38.3 H (24.1-38.0) SEC Sodium (135-145) mmol/L Potassium (3.3-5.1) mmol/L Chloride (96-108) mmol/L Carbon Dioxide (22-29) mmol/L Anion Gap (12-20) BUN (9-16) mg/dL Creatinine (0.5-1.4) mg/dL Estim Creat Clear Calc Estimated GFR POC Glucose 112 (60-115) mg/dL Random Glucose (60-115) mg/dL Lactic Acid (0.5-2.0) mmol/L Calcium (8.4-10.2) mg/dL Troponin I High Sens 11.3 (<3.5-35.0) ng/L Urine Color Urine Appearance Urine pH (5.0-8.0) Ur Specific [place] (1.005-1.025) Urine Protein (NEG-TRACE) MG/DL Urine Glucose (UA) (NEG) MG/DL Urine Ketones (NEG) MG/DL Urine Blood (NEG) Urine Nitrite (NEG) Ur Leukocyte Esterase (NEG) 12/02/ Range/Units 18:07 WBC (4.8-10.8) X10*3/uL RBC (4.60-5.80) X10*6/uL Hgb (14.0-18.0) g/dl Hct (42-52) % MCV (80-98) fL MCH (27.0-33.0) pg MCHC (31.0-36.0) g/dl RDW (11.0-16.0) % Plt Count (160-400) X10*3/uL MPV (9.4-12.4) fL Immature Gran % (Auto) (0.0-0.4) % Neut % (Auto) (45-73) % Lymph % (Auto) (20-40) % [place] % (Auto) (2-11) % Eos % (Auto) (0-4) % Baso % (Auto) (0-2) % Lymph # (Auto) (1.2-4.9) X10*3/uL [place] # (Auto) (0.1-1.2) X10*3/uL Eos # (Auto) (0.0-0.4) X10*3/uL Baso # (Auto) (0.0-0.2) X10*3/uL Abs Immat Gran (auto) (0.00-0.03) X10*3/uL Absolute Neuts (auto) (2.0-8.3) X10*3/uL Absolute Nucleated RBC (0.0-0.012) X10*3/uL Nucleated RBC % (auto) (0.0-0.2) /100WBC PT (9.9-13.0) SEC INR (0.9-1.1) APTT (24.1-38.0) SEC Sodium (135-145) mmol/L Potassium (3.3-5.1) mmol/L Chloride (96-108) mmol/L Carbon Dioxide (22-29) mmol/L Anion Gap (12-20) BUN (9-16) mg/dL Creatinine (0.5-1.4) mg/dL Estim Creat Clear Calc Estimated GFR POC Glucose (60-115) mg/dL Random Glucose (60-115) mg/dL Lactic Acid (0.5-2.0) mmol/L Calcium (8.4-10.2) mg/dL Troponin I High Sens (<3.5-35.0) ng/L Urine Color YELLOW Urine Appearance CLEAR Urine pH 6.0 (5.0-8.0) Ur Specific [place] 1.010 (1.005-1.025) Urine Protein NEG (NEG-TRACE) MG/DL Urine Glucose (UA) NEG (NEG) MG/DL Urine Ketones NEG (NEG) MG/DL Urine Blood NEG (NEG) Urine Nitrite NEG (NEG) Ur Leukocyte Esterase NEG (NEG) <MICHELLE Dueñas - Last Filed: 12/02/20 18:07> Lab Results 12/02/20 12/02/20 12/02/20 Range/Units 14:44 14:44 14:44 WBC 6.6 (4.8-10.8) X10*3/uL RBC 4.57 L (4.60-5.80) X10*6/uL Hgb 12.7 L (14.0-18.0) g/dl Hct 38.9 L (42-52) % MCV 85.1 (80-98) fL MCH 27.8 (27.0-33.0) pg MCHC 32.6 (31.0-36.0) g/dl RDW 16.0 (11.0-16.0) % Plt Count 235 (160-400) X10*3/uL MPV 9.2 L (9.4-12.4) fL Immature Gran % (Auto) 0.2 (0.0-0.4) % Neut % (Auto) 56.9 (45-73) % Lymph % (Auto) 25.9 (20-40) % [place] % (Auto) 11.6 H (2-11) % Eos % (Auto) 4.6 H (0-4) % Baso % (Auto) 0.8 (0-2) % Lymph # (Auto) 1.7 (1.2-4.9) X10*3/uL [place] # (Auto) 0.8 (0.1-1.2) X10*3/uL Eos # (Auto) 0.3 (0.0-0.4) X10*3/uL Baso # (Auto) 0.1 (0.0-0.2) X10*3/uL Abs Immat Gran (auto) 0.01 (0.00-0.03) X10*3/uL Absolute Neuts (auto) 3.8 (2.0-8.3) X10*3/uL Absolute Nucleated RBC 0.000 (0.0-0.012) X10*3/uL Nucleated RBC % (auto) 0.0 (0.0-0.2) /100WBC PT (9.9-13.0) SEC INR (0.9-1.1) APTT (24.1-38.0) SEC Sodium 138 (135-145) mmol/L Potassium 4.4 (3.3-5.1) mmol/L Chloride 106 (96-108) mmol/L Carbon Dioxide 25 (22-29) mmol/L Anion Gap 11 L (12-20) BUN 13 (9-16) mg/dL Creatinine 1.11 (0.5-1.4) mg/dL Estim Creat Clear Calc 60.9 Estimated GFR > 60 POC Glucose (60-115) mg/dL Random Glucose 110 (60-115) mg/dL Lactic Acid 1.2 (0.5-2.0) mmol/L Calcium 9.1 D (8.4-10.2) mg/dL Troponin I High Sens (<3.5-35.0) ng/L Urine Color Urine Appearance Urine pH (5.0-8.0) Ur Specific [place] (1.005-1.025) Urine Protein (NEG-TRACE) MG/DL Urine Glucose (UA) (NEG) MG/DL Urine Ketones (NEG) MG/DL Urine Blood (NEG) Urine Nitrite (NEG) Ur Leukocyte Esterase (NEG) 12/02/20 12/02/20 12/02/20 Range/Units 14:44 14:44 14:53 WBC (4.8-10.8) X10*3/uL RBC (4.60-5.80) X10*6/uL Hgb (14.0-18.0) g/dl Hct (42-52) % MCV (80-98) fL MCH (27.0-33.0) pg MCHC (31.0-36.0) g/dl RDW (11.0-16.0) % Plt Count (160-400) X10*3/uL MPV (9.4-12.4) fL Immature Gran % (Auto) (0.0-0.4) % Neut % (Auto) (45-73) % Lymph % (Auto) (20-40) % [place] % (Auto) (2-11) % Eos % (Auto) (0-4) % Baso % (Auto) (0-2) % Lymph # (Auto) (1.2-4.9) X10*3/uL [place] # (Auto) (0.1-1.2) X10*3/uL Eos # (Auto) (0.0-0.4) X10*3/uL Baso # (Auto) (0.0-0.2) X10*3/uL Abs Immat Gran (auto) (0.00-0.03) X10*3/uL Absolute Neuts (auto) (2.0-8.3) X10*3/uL Absolute Nucleated RBC (0.0-0.012) X10*3/uL Nucleated RBC % (auto) (0.0-0.2) /100WBC PT 14.7 H (9.9-13.0) SEC INR 1.3 H (0.9-1.1) APTT 38.3 H (24.1-38.0) SEC Sodium (135-145) mmol/L Potassium (3.3-5.1) mmol/L Chloride (96-108) mmol/L Carbon Dioxide (22-29) mmol/L Anion Gap (12-20) BUN (9-16) mg/dL Creatinine (0.5-1.4) mg/dL Estim Creat Clear Calc Estimated GFR POC Glucose 112 (60-115) mg/dL Random Glucose (60-115) mg/dL Lactic Acid (0.5-2.0) mmol/L Calcium (8.4-10.2) mg/dL Troponin I High Sens 11.3 (<3.5-35.0) ng/L Urine Color Urine Appearance Urine pH (5.0-8.0) Ur Specific [place] (1.005-1.025) Urine Protein (NEG-TRACE) MG/DL Urine Glucose (UA) (NEG) MG/DL Urine Ketones (NEG) MG/DL Urine Blood (NEG) Urine Nitrite (NEG) Ur Leukocyte Esterase (NEG) 12/02/20 Range/Units 18:07 WBC (4.8-10.8) X10*3/uL RBC (4.60-5.80) X10*6/uL Hgb (14.0-18.0) g/dl Hct (42-52) % MCV (80-98) fL MCH (27.0-33.0) pg MCHC (31.0-36.0) g/dl RDW (11.0-16.0) % Plt Count (160-400) X10*3/uL MPV (9.4-12.4) fL Immature Gran % (Auto) (0.0-0.4) % Neut % (Auto) (45-73) % Lymph % (Auto) (20-40) % [place] % (Auto) (2-11) % Eos % (Auto) (0-4) % Baso % (Auto) (0-2) % Lymph # (Auto) (1.2-4.9) X10*3/uL [place] # (Auto) (0.1-1.2) X10*3/uL Eos # (Auto) (0.0-0.4) X10*3/uL Baso # (Auto) (0.0-0.2) X10*3/uL Abs Immat Gran (auto) (0.00-0.03) X10*3/uL Absolute Neuts (auto) (2.0-8.3) X10*3/uL Absolute Nucleated RBC (0.0-0.012) X10*3/uL Nucleated RBC % (auto) (0.0-0.2) /100WBC PT (9.9-13.0) SEC INR (0.9-1.1) APTT (24.1-38.0) SEC Sodium (135-145) mmol/L Potassium (3.3-5.1) mmol/L Chloride (96-108) mmol/L Carbon Dioxide (22-29) mmol/L Anion Gap (12-20) BUN (9-16) mg/dL Creatinine (0.5-1.4) mg/dL Estim Creat Clear Calc Estimated GFR POC Glucose (60-115) mg/dL Random Glucose (60-115) mg/dL Lactic Acid (0.5-2.0) mmol/L Calcium (8.4-10.2) mg/dL Troponin I High Sens (<3.5-35.0) ng/L Urine Color YELLOW Urine Appearance CLEAR Urine pH 6.0 (5.0-8.0) Ur Specific [place] 1.010 (1.005-1.025) Urine Protein NEG (NEG-TRACE) MG/DL Urine Glucose (UA) NEG (NEG) MG/DL Urine Ketones NEG (NEG) MG/DL Urine Blood NEG (NEG) Urine Nitrite NEG (NEG) Ur Leukocyte Esterase NEG (NEG) <Cy Ortiz MD - Last Filed: 12/02/20 23:56> Imaging Data Head CT/CTA head and neck: Radiologist's impression: 1. No evidence of acute intracranial hemorrhage or edematous territorial infarction. 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 Extensive underlying microangiopathy and generalized cerebral volume loss. ? 2. CTA of the head and neck without proximal occlusion. Atherosclerotic disease causes 60-65% stenoses of the origins of the internal carotid arteries bilaterally. ? 3. Moderate atherosclerotic disease of the A2 and M2 and distal branches of the ACAs and MCAs. ? 4. 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 ? 5. 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 <Cy Ortiz MD - Last Filed: 12/02/20 23:56> ECG Data Interpretation: Irregularly irregular at 56. QRS 82. QTC 447. [place] appears normal. There is artifact in this EKG. No ST elevation or depression. <MICHELLE Dueñas - Last Filed: 12/02/20 18:07> Discharge Plan Discharge Clinical Impression: Altered mental status Qualifiers: Altered mental status type: unspecified Qualified Code(s): R41.82 - Altered mental status, unspecified <MICHELLE Dueñas - Last Filed: 12/02/20 18:07> Patient Disposition: Admitted As Inpatient <MICHELLE Dueñas - Last Filed: 12/02/20 18:07>
--- NOTE | 2020-12-02 14:22 | ECG_ITS ---
Test Reason : AMS Blood Pressure : / mmHG Vent. Rate : 063 BPM Atrial Rate : 000 BPM P-R Int : 000 ms QRS Dur : 074 ms QT Int : 420 ms P-R-T Axes : 000 -24 -49 degrees QTc Int : 429 ms Poor data quality Atrial fibrillation Left axis deviation Low voltage QRS Abnormal ECG ST less depressed in Anterolateral leads Referred By: Ada Medina Electronically Signed By:PHILL HOWARD MD
[2020-12-02 14:29] VITALS: BP 122/57; PULSE 52; RESP 18; TEMP 37.1; O2SAT 97
[2020-12-02 14:58] LABS: Glucose, Whole Blood 112 mg/dL (60-115)
[2020-12-02 15:00] LABS: MANUAL DIFF FLAG NO
[2020-12-02 15:01] LABS: Basophils Absolute Auto 0.1 X10*3/uL (0.0-0.2); Basophils Percent Auto 0.8 % (0-2); Eosinophils Absolute Auto 0.3 X10*3/uL (0.0-0.4); Eosinophils Percent Auto 4.6 % (0-4); Hematocrit 38.9 % (42-52); Hemoglobin 12.7 g/dl (14.0-18.0); Imm Gran Abs Auto 0.01 X10*3/uL (0.00-0.03); Imm Gran Pct Auto 0.2 % (0.0-0.4); Lymphocytes Absolute Auto 1.7 X10*3/uL (1.2-4.9); Lymphocytes Percent Auto 25.9 % (20-40); Mean Corpuscular HGB Conc 32.6 g/dl (31.0-36.0); Mean Corpuscular Hemoglobin 27.8 pg (27.0-33.0); Mean Corpuscular Volume 85.1 fL (80-98); Mean Platelet Volume 9.2 fL (9.4-12.4); Monocytes Absolute Auto 0.8 X10*3/uL (0.1-1.2); Monocytes Percent Auto 11.6 % (2-11); Neutrophils Absolute Auto 3.8 X10*3/uL (2.0-8.3); Neutrophils Percent Auto 56.9 % (45-73); Platelet Count 235 X10*3/uL (160-400); Red Blood Count 4.57 X10*6/uL (4.60-5.80); White Blood Count 6.6 X10*3/uL (4.8-10.8)
[2020-12-02 15:02] VITALS: TEMP 37.4
[2020-12-02 15:06] LABS: INTERNATIONAL NORM RATIO 1.3 (0.9-1.1); Prothrombin Time 14.7 SEC (9.9-13.0)
[2020-12-02 15:09] LABS: Partial Thromboplastin Time 38.3 SEC (24.1-38.0)
[2020-12-02 15:10] LABS: Lactic Acid 1.2 mmol/L (0.5-2.0)
[2020-12-02 15:14] LABS: Anion Gap 11 (12-20); Blood Urea Nitrogen 13 mg/dL (9-16); Calcium 9.1 mg/dL (8.4-10.2); Carbon Dioxide 25 mmol/L (22-29); Chloride 106 mmol/L (96-108); Creatinine Clr Calc Pharmacy 60.9; Estimated Glomerular Filt Rate > 60; Glucose Random 110 mg/dL (60-115); Potassium 4.4 mmol/L (3.3-5.1); Sodium 138 mmol/L (135-145)
[2020-12-02 15:20] LABS: Troponin-I High Sensitivity 11.3 ng/L (<3.5-35.0)
[2020-12-02] MEDS: 0.9 % Sodium Chloride 1,000 ML 999 ML IV (15:34)
[2020-12-02] MEDS: LORazepam 2 MG/ML VIAL 1 MG IVPUSH (17:06)
[2020-12-02] MEDS: iohexoL 350 MG/ML 100 ML INFUS..BTL IV (17:58)
[2020-12-02 18:08] VITALS: BP 162/68; PULSE 84; RESP 18; O2SAT 93
[2020-12-02 18:15] LABS: Appearance Urine CLEAR; Color Urine YELLOW; Glucose Urine UA NEG (NEG); Leukocyte Esterase Urine NEG (NEG); Nitrite Urine NEG (NEG); Urine Blood NEG (NEG); Urine Ketones NEG (NEG); Urine Protein NEG (NEG-TRACE)
[2020-12-02 20:43] VITALS: BP 153/70; PULSE 65; RESP 18; O2SAT 96
--- NOTE | 2020-12-02 20:57 | PC.NURSE ---
Pt alert and confused, per daughter at bedside, pt at baseline mental status. Pt denies pain. Vitals stable. IV intact. Pt and daughter educated on being admitted. Pt resting asleep in stretcher at this time, will continue to monitor.
--- NOTE | 2020-12-02 22:42 | P.HPHOSP_ITS ---
History of Present Illness Date of Service: 12/02/20 Chief Complaint: Aphasia This is an 80-year-old male with past medical history of AFib, CAD, DVT, late stage dementia, HTN, history of multiple CVA who presents to the hospital with complaints of altered mentation by his daughter who lives with him. Patient him self is able to nod yes or no to simple questions but unable to give much history. Daughter at bedside reports that this is not normal for him. She reports that he is quiet at baseline but communicative. Does usually answer questions with yes or no and is able to follow commands appropriately. Patient daughter reports that when he woke up this morning he was not communicating. Not following command, and not able to verbalize his knees when he usually does. She also noted him to be weaker on his chronically weak left side. Review system cannot be completed at patient is not verbalizing and not following commands appropriately On arrival to the ED patient hemodynamically stable with no significant abnormal vitals Labs are significant for 6.6, hemoglobin of 12.7, otherwise unremarkable. Head and neck CT angiogram shows no evidence of acute intracranial hemorrhage or edematous territorial infarction. Chronic encephalomalacia of the right occipital partial lobe, CT of the head and neck without proximal occlusion, arthrosclerotic disease cause of 60-65 % stenosis of the origin of the internal carotid artery bilaterally. Moderate atherosclerotic disease of the a to NM to of the distal branches of the ESTRADA and MCA. Patient will be admitted for further evaluation Review of Systems Review of Systems: Yes all other systems are reviewed and are negative [facility] Medical History (Updated 12/03/20 @ 06:33 by Ekaterina Abarca MD) A-fib CAD (coronary artery disease) CVA (cerebral vascular accident) Dementia DVT (deep venous thrombosis) HTN (hypertension) Pertinent family history: No pertinent history Surgical History Hx of cholecystectomy S/P IVC filter Social History Alcohol intake: never Patient Tobacco Use Status: Never used Tobacco Use of substances other than those prescribed or required for medical reasons: No Advance Directives: No Advance Directives Information Provided: No Meds Allergies Allergy/AdvReac Type Severity Reaction Status Date / Time No Known Allergies Allergy Verified 12/02/20 20:47 [No Known Allergies*] Home Medications Medication Instructions Recorded Confirmed Last Taken Type carvedilol 6.25 mg tablet 1 tab PO BID 12/02/20 12/02/20 12/02/20 08:00 History citalopram 10 mg tablet 1 tab PO DAILY 12/02/20 12/02/20 12/02/20 08:00 History omeprazole 20 mg capsule,delayed 1 cap PO DAILY 12/02/20 12/02/20 12/02/20 08:00 History release rivaroxaban 20 mg tablet (Xarelto) 1 tab PO DAILY 12/02/20 12/02/20 12/01/20 20:00 History tamsulosin 0.4 mg capsule 1 cap PO DAILY 12/02/20 12/02/20 12/01/20 20:00 History Physical Exam Vital Signs and Narrative: Vital Signs: Last Vital Signs Temp 99.3 F 12/02/20 15:02 Pulse 65 12/02/20 20:43 Resp 18 12/02/20 20:43 BP 153/70 H 12/02/20 20:43 Pulse Ox 96 12/02/20 20:43 Body Mass Index 31.7 Const: Other: Awake but has his eyes closed, opens them when I asked him to but then shots done right away, not directable General: cooperative and no acute distress Eyes: Other: 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 General: appearance normal, both eyes and all related structures Pupils: Equal, round and reactive pupils present Resp: Effort & Inspection: normal respiratory effort Auscultation: clear to auscultation bilaterally Cardio: Rate: regular rate Rhythm: regular rhythm GI: Palpation (GI): Soft to palpation Auscultation: normal bowel sounds Skin: General skin exam: no rashes or lesions noted Neuro: Other: Unable to obtain complete neurological exam as patient is not directable is not following commands appropriately Cranial nerves: Yes Equal, round and reactive pupils present Cognition (Neuro): normal cognition Extrem: General: Yes normal to inspection and Yes no pedal edema Results Labs CBC and Chem 7: 12/02/20 14:44 12/02/20 14:44 Labs: Laboratory Results - last 24 hr 12/02/20 12/02/20 12/02/20 14:44 14:44 14:44 MCV 85.1 MCH 27.8 MCHC 32.6 RDW 16.0 Plt Count 235 MPV 9.2 L Immature Gran % (Auto) 0.2 Neut % (Auto) 56.9 Lymph % (Auto) 25.9 Clare % (Auto) 11.6 H Eos % (Auto) 4.6 H Baso % (Auto) 0.8 Lymph # (Auto) 1.7 Clare # (Auto) 0.8 Eos # (Auto) 0.3 Baso # (Auto) 0.1 Abs Immat Gran (auto) 0.01 Absolute Neuts (auto) 3.8 Absolute Nucleated RBC 0.000 Nucleated RBC % (auto) 0.0 PT INR APTT Anion Gap 11 L Estim Creat Clear Calc 60.9 Estimated GFR > 60 POC Glucose Random Glucose 110 Lactic Acid 1.2 Calcium 9.1 D Troponin I High Sens Urine Color Urine Appearance Urine pH Ur Specific [place] Urine Protein Urine Glucose (UA) Urine Ketones Urine Blood Urine Nitrite Ur Leukocyte Esterase 12/02/20 12/02/20 12/02/20 14:44 14:44 14:53 MCV MCH MCHC RDW Plt Count MPV Immature Gran % (Auto) Neut % (Auto) Lymph % (Auto) Clare % (Auto) Eos % (Auto) Baso % (Auto) Lymph # (Auto) Clare # (Auto) Eos # (Auto) Baso # (Auto) Abs Immat Gran (auto) Absolute Neuts (auto) Absolute Nucleated RBC Nucleated RBC % (auto) PT 14.7 H INR 1.3 H APTT 38.3 H Anion Gap Estim Creat Clear Calc Estimated GFR POC Glucose 112 Random Glucose Lactic Acid Calcium Troponin I High Sens 11.3 Urine Color Urine Appearance Urine pH Ur Specific [place] Urine Protein Urine Glucose (UA) Urine Ketones Urine Blood Urine Nitrite Ur Leukocyte Esterase 12/02/20 18:07 MCV MCH MCHC RDW Plt Count MPV Immature Gran % (Auto) Neut % (Auto) Lymph % (Auto) Clare % (Auto) Eos % (Auto) Baso % (Auto) Lymph # (Auto) [place] # (Auto) Eos # (Auto) Baso # (Auto) Abs Immat Gran (auto) Absolute Neuts (auto) Absolute Nucleated RBC Nucleated RBC % (auto) PT INR APTT Anion Gap Estim Creat Clear Calc Estimated GFR POC Glucose Random Glucose Lactic Acid Calcium Troponin I High Sens Urine Color YELLOW Urine Appearance CLEAR Urine pH 6.0 Ur Specific [place] 1.010 Urine Protein NEG Urine Glucose (UA) NEG Urine Ketones NEG Urine Blood NEG Urine Nitrite NEG Ur Leukocyte Esterase NEG Imaging Radiologist's Impressions: Impressions Chest X-Ray 12/02/20 14:24 IMPRESSION: No acute pulmonary disease compared to 04/19/2018. Head/Neck CTA 12/02/20 14:24 IMPRESSION: 1. No evidence of acute intracranial hemorrhage or edematous territorial infarction. 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 Extensive underlying microangiopathy and generalized cerebral volume loss. 2. CTA of the head and neck without proximal occlusion. Atherosclerotic disease causes 60-65% stenoses of the origins of the internal carotid arteries bilaterally. 3. Moderate atherosclerotic disease of the A2 and M2 and distal branches of the ACAs and MCAs. 4. 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 5. 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 Assessment and Plan (1) CVA (cerebral vascular accident): Status: Acute (2) Altered mental status: Qualifiers: Altered mental status type: unspecified Qualified Code(s): R41.82 - Altered mental status, unspecified Status: Acute This is an 80-year-old male with 3 previous episodes of strokes presents to the hospital by his daughter with complaints of altered mentation and change of his baseline # altered mental status - no evidence of infection, possibly secondary to acute stroke - daughter reports a new worsened weakness of his left lower extremity - will consult neurology - defer MRI to Neurology - of note patient is not on aspirin or statin, when asked about this from his daughter she reports that he is not on aspirin given his history of Xarelto but unclear why he is not on high-dose of statin given his history of multiple strokes # CVA - has worsened left lower extremity weakness, has strong history of strokes with 3 episodes in the past - at this time will defer MRI to Neurology # history of DVT - continue Xarelto # history of CAD - continue carvedilol # hypertension - stable - continue carvedilol DVT prophylaxis: Xarelto Quality Stroke Does the patient have a stroke diagnosis?: No VTE Prior VTE?: No VTE Risk Level:: Medical - moderate - high VTE Device Contraindication: Treatment Not Indicated VTE Drug Contraindication: N/A - Med Ordered
[2020-12-03] VITALS (7 sets, daily range): BP systolic 142–189; BP diastolic 60–88; PULSE 53–64; RESP 14–18; TEMP 36.8–36.9; O2SAT 96–98; BMI 30.5
--- NOTE | 2020-12-03 06:18 | PC.NURSE ---
Pt alert and confused, remains at baseline mental status. Pt slept most of night custodian. Pt denies pain. Pt turned and positioned. Pt urinated incontinent episode, pt cleaned and linens changed. IV intact, vitals stable. Pt resting in stretcher at this time, will continue to monitor.
--- NOTE | 2020-12-03 08:32 | PC.NURSE ---
Pt sleeping. skin pwd. chest rise noted.
[2020-12-03 09:14] LABS: MANUAL DIFF FLAG NO
[2020-12-03 09:17] LABS: Basophils Absolute Auto 0.1 X10*3/uL (0.0-0.2); Basophils Percent Auto 0.5 % (0-2); Eosinophils Absolute Auto 0.3 X10*3/uL (0.0-0.4); Hematocrit 40.6 % (42-52); Hemoglobin 13.2 g/dl (14.0-18.0); Imm Gran Abs Auto 0.04 X10*3/uL (0.00-0.03); Imm Gran Pct Auto 0.4 % (0.0-0.4); Lymphocytes Absolute Auto 2.1 X10*3/uL (1.2-4.9); Lymphocytes Percent Auto 19.2 % (20-40); Mean Corpuscular HGB Conc 32.5 g/dl (31.0-36.0); Mean Corpuscular Hemoglobin 27.7 pg (27.0-33.0); Mean Corpuscular Volume 85.1 fL (80-98); Mean Platelet Volume 9.1 fL (9.4-12.4); Monocytes Absolute Auto 1.1 X10*3/uL (0.1-1.2); Monocytes Percent Auto 10.2 % (2-11); Neutrophils Absolute Auto 7.4 X10*3/uL (2.0-8.3); Neutrophils Percent Auto 66.7 % (45-73); Platelet Count 232 X10*3/uL (160-400); Red Blood Count 4.77 X10*6/uL (4.60-5.80); Red Cell Distribution Width 15.9 % (11.0-16.0)
[2020-12-03 09:38] LABS: Anion Gap 13 (12-20); Blood Urea Nitrogen 11 mg/dL (9-16); Calcium 9.1 mg/dL (8.4-10.2); Carbon Dioxide 24 mmol/L (22-29); Chloride 105 mmol/L (96-108); Creatinine Clr Calc Pharmacy 68.3; Estimated Glomerular Filt Rate > 60; Glucose Random 86 mg/dL (60-115); Sodium 138 mmol/L (135-145)
--- NOTE | 2020-12-03 09:56 | PC.NURSE ---
iesha, daughter, states baseline is that he can't hold a conversation but more interactive than current states. pt is unable to follow commands for this rn. meds normally are crushed. can eat everything but cut it small can drink thin liquids.
[2020-12-03 10:20] LABS: Glucose, Whole Blood 85 mg/dL (60-115)
--- NOTE | 2020-12-03 10:20 | PC.NURSE ---
Pt is arousable to light physical touch. able to follow very simple commands/ pt is not speaking at all. skin pwd. incontinent of urine, cleansed. no skin breakdown noted. speech currently at bedside. moist mm.
--- NOTE | 2020-12-03 10:35 | PM.NEUROCN ---
History of Present Illness Data of Consult Service Date: 12/03/20 Primary Care Provider: Unknown Physician HPI Reason for consult: CHANGE IN MENTAL STATUS 80 YEARS OLD MAN WITH UNDERLYING SEVERE DEGENERATIVE PLUS VASCULAR DEMENTIA WAS BROUGHT TO HOSPITAL AFTER CHANGE IN MENTAL STATUS. APPARENTLY HIS BASELINE WAS SIGNIFICANTLY AFFECTED BUT HE COULD ANSWER QUESTIONS YES AND NO AND HE STOP DOING THAT BRINGING HIM TO HOSPITAL. HE WAS UNABLE TO PROVIDE ANY HISTORY. THERE WAS NO EVIDENCE OF ANY RECENT FALL OR SEIZURE-LIKE EPISODE. Review of Systems Review of Systems: COULD NOT BE DONE WITH [facility] Past Medical History Medical History (Updated 12/03/20 @ 10:38 by Courtney Leary MD) A-fib CAD (coronary artery disease) CVA (cerebral vascular accident) Dementia DVT (deep venous thrombosis) HTN (hypertension) Surgical History Surgical History Hx of cholecystectomy S/P IVC filter Social History Social History Alcohol intake: never Patient Tobacco Use Status: Never used Tobacco Use of substances other than those prescribed or required for medical reasons: No Advance Directives: No Advance Directives Information Provided: No Meds Allergies Allergy/AdvReac Type Severity Reaction Status Date / Time No Known Allergies Allergy Verified 12/02/20 20:47 [No Known Allergies*] Active Medications: Current Medications Acetaminophen (Acetaminophen 325 Mg Tablet) 650 mg PO Q6H PRN PRN Reason: Pain, Mild (Pain Scale 1-3) Carvedilol (Carvedilol 6.25 Mg Tablet) 6.25 mg PO BID [facility]; Protocol Docusate Sodium (Docusate Sodium 100 Mg Capsule) 100 mg PO DAILY PRN PRN Reason: Constipation Escitalopram Oxalate (Escitalopram Oxalate 5 Mg Tablet) 5 mg PO DAILY [facility] Omeprazole (Omeprazole 20 Mg Capsule.Dr) 20 mg PO DAILY [facility] Ondansetron HCl (Ondansetron Hcl 4 Mg/2 Ml Vial) 4 mg IVPUSH Q8H PRN PRN Reason: Nausea and Vomiting Rivaroxaban (Rivaroxaban 20 Mg Tablet) 20 mg PO DAILY [facility] Sodium Chloride (0.9 % Sodium Chloride Flush 3 Ml Syringe) 3 ml IVFLUSH QSHIFT DEBBY Last Admin: 12/03/20 10:25 Dose: Not Given Documented by: Tamsulosin HCl (Tamsulosin Hcl 0.4 Mg Capsule) 0.4 mg PO DAILY [facility] Home Medications Medication Instructions Recorded Confirmed Last Taken Type carvedilol 6.25 mg tablet 1 tab PO BID 12/02/20 12/02/20 12/02/20 08:00 History citalopram 10 mg tablet 1 tab PO DAILY 12/02/20 12/02/20 12/02/20 08:00 History omeprazole 20 mg capsule,delayed 1 cap PO DAILY 12/02/20 12/02/20 12/02/20 08:00 History release rivaroxaban 20 mg tablet (Xarelto) 1 tab PO DAILY 12/02/20 12/02/20 12/01/20 20:00 History tamsulosin 0.4 mg capsule 1 cap PO DAILY 12/02/20 12/02/20 12/01/20 20:00 History Physical Exam Vital Signs: Vital Signs: Last Vital Signs Temp 98.5 F 12/03/20 10:06 Pulse 53 12/03/20 10:06 Resp 18 12/03/20 10:06 BP 189/85 H 12/03/20 10:06 Pulse Ox 96 12/03/20 10:06 Body Mass Index 31.7 Neuro: Other: HE WAS NOT RESPONSIVE TO VERBAL COMMANDS. WITH PAINFUL STIMULI HE MOANED. AFTER COAXING AND SHOUTING FOR A WHILE HE DID NOT OPEN HIS EYES. I WAS ABLE TO OPEN HIS EYES AND DID NOT NOTICE ANY GAZE DEVIATION OR JERKING. PUPILS WERE ROUND REACTIVE. FACE SEEMS SYMMETRICAL. HE FOLLOWED MINIMAL ONE-STEP COMMANDS SUCH SQUEEZING MY HAND WITH HIS FINGERS BUT DID NOT SHOW ME THE NUMBER OF FINGERS I ASKED HIM TO SHOW ME. THERE WAS NO ABNORMAL POSTURING. DEEP TENDON REFLEXES WERE ABSENT WITH FLEXOR PLANTARS. Results Labs CBC & Chem 7: 12/03/20 08:59 12/03/20 08:59 Labs: Short CBC 12/02/20 12/03/20 Range/Units 14:44 08:59 WBC 6.6 11.0 H (4.8-10.8) X10*3/uL Hgb 12.7 L 13.2 L (14.0-18.0) g/dl Hct 38.9 L 40.6 L (42-52) % Plt Count 235 232 (160-400) X10*3/uL BMP 12/02/20 12/03/20 14:44 08:59 Sodium 138 138 Potassium 4.4 4.0 Chloride 106 105 Carbon Dioxide 25 24 BUN 13 11 Creatinine 1.11 0.99 Calcium 9.1 D 9.1 Urine 12/02/20 Range/Units 18:07 Urine Color YELLOW Urine Appearance CLEAR Urine pH 6.0 (5.0-8.0) Ur Specific [place] 1.010 (1.005-1.025) Urine Protein NEG (NEG-TRACE) MG/DL Urine Glucose (UA) NEG (NEG) MG/DL NONCONTRAST HEAD CT REVEALED SIGNIFICANT DIFFUSE CEREBRAL AND CEREBELLAR ATROPHY AND MULTIPLE CHRONIC ISCHEMIC INFARCTIONS. HIS INITIAL RECTAL TEMPERATURE WAS 99 DEGREES. Assessment and Plan (1) Encephalopathy: Status: Acute 80 YEARS OLD MAN WHO SEEMS TO HAVE SIGNIFICANT UNDERLYING MULTIFACTORIAL DEMENTIA AND LIMITED COGNITION OR MENTAL STATUS FUNCTIONS WAS BROUGHT TO HOSPITAL WITH CHANGE IN MENTAL STATUS AND WORSENING OF HIS BASELINE MENTAL STATUS. AT THIS TIME HE WAS MOSTLY UNRESPONSIVE WITH NO OBVIOUS FOCALITY ON EXAMINATION. THERE WAS NO OBVIOUS SIGN OF INFECTION FAR HIS BLOOD WORK WAS CONCERNED OR ANY OTHER METABOLIC ABNORMALITY TO EXPLAIN IT. POSSIBILITIES COULD INCLUDE A STROKE OR SEIZURE DISORDER. DEPENDING HOW AGGRESSIVE HIS FAMILY WANTED TO BE WITH HIS OVERALL CARE, AN MRI OF BRAIN AND EEG ARE RECOMMENDED. I WOULD RECOMMEND AVOIDING AGGRESSIVE MAY YEARS AND ONLY DOING TEST THAT COULD MAKE MEANINGFUL DIFFERENCE IN HIS LIFE. Procedures Date of Service Date of Service: 12/03/20
[2020-12-03 10:37] LABS: COVID-19 Test Negative (Negative)
--- NOTE | 2020-12-03 11:16 | MHC.CM.PN ---
Attempted to meet with patient in regards to discharge planning. Patient has a history of advanced dementia. Spoke with patient's daughter/HCP, Lbua, via telephone at [phone]. Patient was previously living at [facility]. However, he has been living with Luba for about a year. He receives [facility] health aides through [facility] and private pay. PCP verified as Dr Vigil. Patient received Pfizer vaccines on 02/22 and 03/15. Luba feels VNA would be beneficial at discharge and is agreeable to referral to [facility]. Referral made via Allscripts. Patient will need BLS transport at d/c. Copy of [facility] and HCP verified to be on file. Continue to monitor for d/c needs.
--- NOTE | 2020-12-03 11:17 | P.PNIM_ITS ---
Subjective Subjective Date of Service: 12/04/20 Interval History: Seen in f/ur for AMS, left weaknes and aphasia, Review of Systems Patient was not talking Physical Exam Vital Signs: Vital Signs: Last Vital Signs Temp 98.5 F 12/03/20 10:06 Pulse 53 12/03/20 10:06 Resp 18 12/03/20 10:06 BP 189/85 H 12/03/20 10:06 Pulse Ox 96 12/03/20 10:06 Body Mass Index 31.7 General: Alert, not oriented Resp: CTA bilateral CVS: S1,S2,RRR GI: +BS, NT, no distention Skin: No rash Neuro: motor grossly intact, limitted exam d/t lack of participation Psych: affect: flat Objective Data Active Medications Acetaminophen (Acetaminophen 325 Mg Tablet) 650 mg PO Q6H PRN PRN Reason: Pain, Mild (Pain Scale 1-3) Carvedilol (Carvedilol 6.25 Mg Tablet) 6.25 mg PO BID [facility]; Protocol Docusate Sodium (Docusate Sodium 100 Mg Capsule) 100 mg PO DAILY PRN PRN Reason: Constipation Escitalopram Oxalate (Escitalopram Oxalate 5 Mg Tablet) 5 mg PO DAILY [facility] Omeprazole (Omeprazole 20 Mg Capsule.Dr) 20 mg PO DAILY [facility] Ondansetron HCl (Ondansetron Hcl 4 Mg/2 Ml Vial) 4 mg IVPUSH Q8H PRN PRN Reason: Nausea and Vomiting Rivaroxaban (Rivaroxaban 20 Mg Tablet) 20 mg PO DAILY [facility] Sodium Chloride (0.9 % Sodium Chloride Flush 3 Ml Syringe) 3 ml IVFLUSH QSHIFT [facility] Last Admin: 12/03/20 10:25 Dose: Not Given Documented by: NORMA Non-Admin Reason: Med Not Available Tamsulosin HCl (Tamsulosin Hcl 0.4 Mg Capsule) 0.4 mg PO DAILY [facility] Labs CBC & Chem 7: 12/03/20 08:59 12/03/20 08:59 Labs: Laboratory Results - last 24 hr 12/02/20 12/02/20 12/02/20 14:44 14:44 14:44 MCV 85.1 MCH 27.8 MCHC 32.6 RDW 16.0 Plt Count 235 MPV 9.2 L Immature Gran % (Auto) 0.2 Neut % (Auto) 56.9 Lymph % (Auto) 25.9 [place] % (Auto) 11.6 H Eos % (Auto) 4.6 H Baso % (Auto) 0.8 Lymph # (Auto) 1.7 [place] # (Auto) 0.8 Eos # (Auto) 0.3 Baso # (Auto) 0.1 Abs Immat Gran (auto) 0.01 Absolute Neuts (auto) 3.8 Absolute Nucleated RBC 0.000 Nucleated RBC % (auto) 0.0 PT INR APTT Anion Gap 11 L Estim Creat Clear Calc 60.9 Estimated GFR > 60 POC Glucose Random Glucose 110 Lactic Acid 1.2 Calcium 9.1 D Troponin I High Sens Urine Color Urine Appearance Urine pH Ur Specific [place] Urine Protein Urine Glucose (UA) Urine Ketones Urine Blood Urine Nitrite Ur Leukocyte Esterase COVID-19 ([facility]) COVID-19 [facility] 12/02/20 12/02/20 12/02/20 14:44 14:44 14:53 MCV MCH MCHC RDW Plt Count MPV Immature Gran % (Auto) Neut % (Auto) Lymph % (Auto) [place] % (Auto) Eos % (Auto) Baso % (Auto) Lymph # (Auto) [place] # (Auto) Eos # (Auto) Baso # (Auto) Abs Immat Gran (auto) Absolute Neuts (auto) Absolute Nucleated RBC Nucleated RBC % (auto) PT 14.7 H INR 1.3 H APTT 38.3 H Anion Gap Estim Creat Clear Calc Estimated GFR POC Glucose 112 Random Glucose Lactic Acid Calcium Troponin I High Sens 11.3 Urine Color Urine Appearance Urine pH Ur Specific [place] Urine Protein Urine Glucose (UA) Urine Ketones Urine Blood Urine Nitrite Ur Leukocyte Esterase COVID-19 ([facility]) [facility] 12/02/20 12/03/20 12/03/20 18:07 08:59 08:59 MCV 85.1 MCH 27.7 MCHC 32.5 RDW 15.9 Plt Count 232 MPV 9.1 L Immature Gran % (Auto) 0.4 Neut % (Auto) 66.7 Lymph % (Auto) 19.2 L [place] % (Auto) 10.2 Eos % (Auto) 3.0 Baso % (Auto) 0.5 Lymph # (Auto) 2.1 [place] # (Auto) 1.1 Eos # (Auto) 0.3 Baso # (Auto) 0.1 Abs Immat Gran (auto) 0.04 H Absolute Neuts (auto) 7.4 Absolute Nucleated RBC 0.000 Nucleated RBC % (auto) 0.0 PT INR APTT Anion Gap 13 Estim Creat Clear Calc 68.3 Estimated GFR > 60 POC Glucose Random Glucose 86 Lactic Acid Calcium 9.1 Troponin I High Sens Urine Color YELLOW Urine Appearance CLEAR Urine pH 6.0 Ur Specific [place] 1.010 Urine Protein NEG Urine Glucose (UA) NEG Urine Ketones NEG Urine Blood NEG Urine Nitrite NEG Ur Leukocyte Esterase NEG COVID-19 ([facility]) COVID-19 Clin Com 12/03/20 12/03/20 10:03 10:05 MCV MCH MCHC RDW Plt Count MPV Immature Gran % (Auto) Neut % (Auto) Lymph % (Auto) [place] % (Auto) Eos % (Auto) Baso % (Auto) Lymph # (Auto) [place] # (Auto) Eos # (Auto) Baso # (Auto) Abs Immat Gran (auto) Absolute Neuts (auto) Absolute Nucleated RBC Nucleated RBC % (auto) PT INR APTT Anion Gap Estim Creat Clear Calc Estimated GFR POC Glucose 85 Random Glucose Lactic Acid Calcium Troponin I High Sens Urine Color Urine Appearance Urine pH Ur Specific [place] Urine Protein Urine Glucose (UA) Urine Ketones Urine Blood Urine Nitrite Ur Leukocyte Esterase COVID-19 ([facility]) Negative COVID-19 Clin Com See Note Assessment and Plan (1) Encephalopathy: Status: Acute Assessment and Plan: 80-year-old male with 3 previous episodes of strokes presents to the hospital by his daughter with complaints of altered mentation and change of his baseline # AMS/Aphasia and more weakness on left thatn usual--no stroke on CT, likely e ncephalopathy of some sort -Neuro recommends MRI to rule out stroke, and EEG to rule seizure # history of DVT - continue Xarelto # history of CAD - continue carvedilol # hypertension - stable - continue carvedilol #Dysphagia--speech recommend NDD3, and thin liquid DVT prophylaxis:? Xarelto (2) Altered mental status: Status: Acute Quality Stroke Does the patient have a stroke diagnosis?: No VTE Prior VTE?: No VTE Risk Level:: Medical - moderate - high VTE Device Contraindication: Treatment Not Indicated VTE Drug Contraindication: N/A - Med Ordered
--- NOTE | 2020-12-03 11:26 | MHC.SL.SWA ---
Speech Pathologist Impression: Risk of Aspiration Oralpharyngeal Dysphagia Risk of Aspiration Due to: Neurological Condition Reduced Cognition Dysphasia Diet Status: Upgrade Liquid Consistency and Strategies for Safe Swallow: Liquid Intake Recommendation: Thin Liquid Intake Strategies: Small Sips No Straws Solid Food Consistency: Dietary Recommendations: Chopped/Advanced (NDD3) Additional Modifications to Solid Foods: Recommend CHOPPED/ADVANCED (NDD3) solids and THIN liquids (NO STRAWS) with pills CRUSHED in PUREE. Patient requires total 1:1 assistance feeding and strict aspiration precautions. This is reportedly patient's baseline. CAREERS ADVISER will continue to follow to monitor tolerance of PO. Oral Medication Intake: Crushed with Puree Compensatory Strategies and Precautions to be Taken for Safe Swallow: Sitting Upright (90 deg) No Straw Liquids from Cup Liquids from Spoon Small Bites and Sips Alternate Liquids/Solids Rate of Ingestion Change Oral Check Supervision While Eating and Drinking for Safe Swallow: Total Assistance Swallowing Recommended Treatments: Compens. Strategy Educat. Recommendation for Speech: Inpatient Speech Therapy Comment: CAREERS ADVISER will continue to follow to monitor tolerance of PO. Mixed Signal Design Engineer Clinican/Clinical Fellow: Yes: Terri Yousif Supervisory Statement: I have reviewed and agree with the student/clinical fellow's documentation: Yes Speech Language Pathologist: Meenu Sheldon M.A., CCC-CAREERS ADVISER
[2020-12-03] MEDS: carvediloL 6.25 MG TABLET PO ×2 (11:55→20:38)
[2020-12-03] MEDS: Escitalopram Oxalate 5 MG TABLET PO (11:55)
[2020-12-03] MEDS: Rivaroxaban 20 MG TABLET PO (11:55)
[2020-12-03] MEDS: Tamsulosin HCL 0.4 MG CAPSULE PO (11:56)
[2020-12-03] MEDS: Omeprazole 20 MG CAPSULE.DR PO (11:57)
--- NOTE | 2020-12-03 12:00 | PC.NURSE ---
Pt was able to take meds crushed in apple sauce sitting at 90 degrees. no diff swallowing.
--- NOTE | 2020-12-03 12:11 | PC.NURSE ---
daughter, iesha, reached by phone for completion of MRI screening form and permission for test. Form completed and signed by 2 RNs.
--- NOTE | 2020-12-03 15:07 | MHC.CM.PN ---
Received telephone call from patient's daughter/HCP, Luba. Luba feels patient will need rehab. At patient's baseline., patient is able to ambulate from his bed to the living room recliner with a walker but independently. Luba is agreeable to referral to all 3 acute rehabs. If no acute rehab beds are offered, [facility] is second choice and [facility] is third choice. Referrals made via Allscripts. Continue to monitor for d/c needs.
[2020-12-03] MEDS: Acetaminophen 325 MG TABLET 650 MG PO (19:05)
[2020-12-03] MEDS: 0.9 % Sodium Chloride Flush 3 ML SYRINGE IVFLUSH (20:37)
[2020-12-04] VITALS (10 sets, daily range): BP systolic 120–190; BP diastolic 57–86; PULSE 51–120; RESP 17–19; TEMP 36.6–37.1; O2SAT 92–97
--- NOTE | 2020-12-04 | EEG_ITS ---
The waking background activity consists of a moderate voltage diffuse 5 to 6 hertz theta seen over both hemispheres. Photic stimulation is without activation. Hyperventilation was omitted. IMPRESSION: This is an abnormal EEG due to diffuse background slowing consistent with a diffuse encephalopathic process. No epileptiform discharges seen. MD CHRISTIAN Delgado/DERIK / [id number]
[2020-12-04] MEDS: carvediloL 6.25 MG TABLET PO ×2 (08:24→21:24)
[2020-12-04] MEDS: Rivaroxaban 20 MG TABLET PO (08:24)
[2020-12-04] MEDS: Tamsulosin HCL 0.4 MG CAPSULE PO (08:24)
[2020-12-04] MEDS: Omeprazole 20 MG CAPSULE.DR PO (08:24)
[2020-12-04] MEDS: Escitalopram Oxalate 5 MG TABLET PO (08:24)
[2020-12-04] MEDS: 0.9 % Sodium Chloride Flush 3 ML SYRINGE IVFLUSH ×3 (08:25→21:24)
--- NOTE | 2020-12-04 10:22 | MHC.SL.DTX ---
Pre-Treatment Diet: Subjective: Changes made to current diet?: No Dysphasia Diet Status: Continue current diet of NDD3 CHOPPED/AFVANCED solids and THIN liquids via cup sips Liquid Consistency and Strategies: Liquid Intake Recommendation: Thin Compensatory Strategies for Safe Swallow: Small Sips No Straws Compensatory Strategies for Safe Swallow(b): Small Bites and Sips Alternate Liquids/Solids Oral Check Solid Food Consistency: Dietary Recommendations: Chopped/Advanced (NDD3) Additional Modifications to Solids: Recommend CHOPPED/ADVANCED (NDD3) solids and THIN liquids (NO STRAWS) with pills CRUSHED in PUREE. Patient requires total 1:1 assistance feeding and strict aspiration precautions. This is reportedly patient's baseline. ETL INFORMATICA ARCHITECT will continue to follow to monitor tolerance of PO. Oral Medication Intake: Crushed with Puree Strategies and Precautions to be Taken for Safe Swallow: Compensatory Swallowing Status: Small Bites and Sips Alternate Liquids/Solids Oral Check Supervision While Eating and/Drinking: Total Assistance Foods to Avoid: Swallowing Recommended Treatments: Compens. Strategy Educat. Level of Impact on: Daily activities: Severe Interpersonal interactions: Severe Community: Severe Prognosis for Improvement: Guarded Recommendation for Speech: Inpatient Speech Therapy Comment: Patient requires total 1:1 assistance feeding and aspiration precautions. ETL INFORMATICA ARCHITECT will continue to follow to monitor tolerance of PO. Frequency/Duration: 1 additional follow-up session is recommended. Additional Comments: Treatment: Pt was seen for dysphagia treatment with his daughter present. She reported that pt tolerated breakfast well, consuming 100% of his meal without any overt s/s aspiration. Pt's daughter reported that pt's diet consistency is the same exact as what he eats at home. Pt was observed rubbing his left eye, which his daughter reported as new since pt's CVA. Pt accepted a small piece of a cracker moistened in puree for which he demonstrated good oral clearance and no overt s/s aspiration. He tolerated thin liquids with a mildly delayed swallow trigger and no overt s/s aspiration. Pt was dependent for feeding, consistent with his baseline, per his daughter. Pt noted to be slow to respond to speech and inconsistently produced verbal responses to questions asked. Per pt's daughter, this is consistent with that of his baseline. ETL INFORMATICA ARCHITECT will continue to follow pt for 1 additional follow-up session to ensure continued tolerance, as PO trials were limited this date due to pt feeling full from breakfast. Hand Ii Blocker Clinican/Clinical Fellow: No Supervisory Statement: I have reviewed and agree with the student/clinical fellow's documentation: N/A Speech Language Pathologist: Cele Hoskins M.A., CCC-ETL INFORMATICA ARCHITECT
--- NOTE | 2020-12-04 10:48 | HO.PM.IMPN ---
Subjective Subjective Date of Service: 12/04/20 Interval History: Seen in f/u for AMS, aphasia, seem more communicative but doesn't make sense Review of Systems Review of Systems: Yes Unobtainable due to mental status Physical Exam Vital Signs: Vital Signs: Last Vital Signs Temp 98.4 F 12/04/20 07:55 Pulse 66 12/04/20 08:24 Resp 18 12/04/20 07:55 BP 133/74 12/04/20 08:24 Pulse Ox 96 12/04/20 07:55 Const: Other: Gen: Alert, not oriented Resp:? CTA bilateral CVS: S1,S2,RRR GI: +BS, NT, no distention Skin: No rash Neuro:? motor grossly intact, limitted exam d/t lack of good participation Psych: affect: flat Objective Data Active Medications Acetaminophen (Acetaminophen 325 Mg Tablet) 650 mg PO Q6H PRN PRN Reason: Pain, Mild (Pain Scale 1-3) Last Admin: 12/03/20 19:05 Dose: 650 mg Documented by: DANETTE Carvedilol (Carvedilol 6.25 Mg Tablet) 6.25 mg PO BID [facility]; Protocol Last Admin: 12/04/20 08:24 Dose: 6.25 mg Documented by: WILBUR Docusate Sodium (Docusate Sodium 100 Mg Capsule) 100 mg PO DAILY PRN PRN Reason: Constipation Escitalopram Oxalate (Escitalopram Oxalate 5 Mg Tablet) 5 mg PO DAILY [facility] Last Admin: 12/04/20 08:24 Dose: 5 mg Documented by: WILBUR Omeprazole (Omeprazole 20 Mg Capsule.Dr) 20 mg PO DAILY [facility] Last Admin: 12/04/20 08:24 Dose: 20 mg Documented by: WILBUR Ondansetron HCl (Ondansetron Hcl 4 Mg/2 Ml Vial) 4 mg IVPUSH Q8H PRN PRN Reason: Nausea and Vomiting Rivaroxaban (Rivaroxaban 20 Mg Tablet) 20 mg PO DAILY [facility] Last Admin: 12/04/20 08:24 Dose: 20 mg Documented by: WILBUR Sodium Chloride (0.9 % Sodium Chloride Flush 3 Ml Syringe) 3 ml IVFLUSH QSHIFT [facility] Last Admin: 12/04/20 08:25 Dose: 3 ml Documented by: WILBUR Tamsulosin HCl (Tamsulosin Hcl 0.4 Mg Capsule) 0.4 mg PO DAILY [facility] Last Admin: 12/04/20 08:24 Dose: 0.4 mg Documented by: WILBUR Labs CBC & Chem 7: 12/03/20 08:59 12/03/20 08:59 Microbiology Microbiology Results: Microbiology 12/02/20 14:44 Blood Culture - Preliminary Blood - Venous No growth after 24 hours. 12/02/20 14:44 Blood Culture - Preliminary Blood - Venous No growth after 24 hours. Assessment and Plan (1) Encephalopathy: Status: Acute Assessment and Plan: 80-year-old male with 3 previous episodes of strokes presents to the hospital by his daughter with complaints of altered mentation and change of his baseline # AMS/Aphasia, some weaknessl--no stroke on CT, MRI was distorted by motion. EEG pending. # history of DVT - continue Xarelto # history of CAD - continue carvedilol # hypertension - stable - continue carvedilol #Dysphagia--speech recommend NDD3, and thin liquid DVT prophylaxis:? Xarelto PT eval and possibly home (2) Altered mental status: Status: Acute Quality Stroke Does the patient have a stroke diagnosis?: No VTE Prior VTE?: No VTE Risk Level:: Medical - moderate - high VTE Device Contraindication: Treatment Not Indicated VTE Drug Contraindication: N/A - Med Ordered
[2020-12-04] MEDS: Acetaminophen 325 MG TABLET 650 MG PO (18:19)
--- NOTE | 2020-12-04 18:42 | P.EN_ITS ---
Event Note Date of Service: 12/04/20 Event Note: Discussed care over the phone with daughter Luba who notes that th ere may be some changes in patient similar to what he had before coming in, I offer to do another head imaging but I this point unlikely to change care and she (laurel and HCP) want him to be comfortable and to offer something more than tyelenol for pain and therefor will order low dose morphine for pain control.
--- NOTE | 2020-12-04 19:03 | PC.NURSE ---
went into room to assess patient, was making gestures that the right side of his head hurt. He was rubbing his right eye and the right side of his head. Pupils were round and reactive, vitals stable. These actions are very similar to the events that lead up to his daughter bringing him to the emergency dept according to his daughter. MD notified, ordered low dose morphine for pain control. Administered tylenol prior to morphine order.
[2020-12-05] VITALS (9 sets, daily range): BP systolic 106–174; BP diastolic 52–75; PULSE 54–76; RESP 15–20; TEMP 36.8–37.7; O2SAT 95–97
[2020-12-05 07:26] LABS: Glucose, Whole Blood 88 mg/dL (60-115)
[2020-12-05] MEDS: Escitalopram Oxalate 5 MG TABLET PO (09:34)
[2020-12-05] MEDS: Acetaminophen 325 MG TABLET 650 MG PO ×2 (09:34→17:06)
[2020-12-05] MEDS: carvediloL 6.25 MG TABLET PO ×2 (09:34→23:14)
[2020-12-05] MEDS: Rivaroxaban 20 MG TABLET PO (09:34)
[2020-12-05] MEDS: Omeprazole 20 MG CAPSULE.DR PO (09:34)
[2020-12-05] MEDS: Tamsulosin HCL 0.4 MG CAPSULE PO (09:34)
[2020-12-05] MEDS: 0.9 % Sodium Chloride Flush 3 ML SYRINGE IVFLUSH ×3 (09:35→23:15)
--- NOTE | 2020-12-05 10:25 | HO.PM.IMPN ---
Subjective Subjective Date of Service: 12/05/20 Interval History: Seen in f/u for AMS, aphasia, left sided weakness. He seems more alert and follows some basic commands but still difficult to do full assessment Review of Systems n Review of Systems: Yes Unobtainable due to mental status Physical Exam Vital Signs: Vital Signs: Last Vital Signs Temp 98.2 F 12/05/20 03:56 Pulse 64 12/05/20 09:34 Resp 20 12/05/20 08:00 BP 174/74 H 12/05/20 09:34 Pulse Ox 96 12/05/20 08:00 Body Mass Index 30.5 Const: Other: Gen: Alert, not oriented, follows basic commands Resp:? CTA bilateral CVS: S1,S2,RRR GI: +BS, NT, no distention Skin: No rash Neuro:?strenght about 5/5 in arms and legs, limitted exam however d/t inability to follow good commands Psych: affect: flat Objective Data Active Medications Acetaminophen (Acetaminophen 325 Mg Tablet) 650 mg PO Q6H PRN PRN Reason: Pain, Mild (Pain Scale 1-3) Last Admin: 12/05/20 09:34 Dose: 650 mg Documented by: CASSY Carvedilol (Carvedilol 6.25 Mg Tablet) 6.25 mg PO BID [facility]; Protocol Last Admin: 12/05/20 09:34 Dose: 6.25 mg Documented by: CASSY Docusate Sodium (Docusate Sodium 100 Mg Capsule) 100 mg PO DAILY PRN PRN Reason: Constipation Escitalopram Oxalate (Escitalopram Oxalate 5 Mg Tablet) 5 mg PO DAILY [facility] Last Admin: 12/05/20 09:34 Dose: 5 mg Documented by: CASSY Morphine Sulfate (Morphine Sulfate 2 Mg/Ml Cartridge) 1 mg IVPUSH Q4H PRN; Protocol PRN Reason: Pain, Severe (Pain Scale 7-10) Omeprazole (Omeprazole 20 Mg Capsule.) 20 mg PO DAILY [facility] Last Admin: 12/05/20 09:34 Dose: 20 mg Documented by: CASSY Ondansetron HCl (Ondansetron Hcl 4 Mg/2 Ml Vial) 4 mg IVPUSH Q8H PRN PRN Reason: Nausea and Vomiting Rivaroxaban (Rivaroxaban 20 Mg Tablet) 20 mg PO DAILY [facility] Last Admin: 12/05/20 09:34 Dose: 20 mg Documented by: CASSY Sodium Chloride (0.9 % Sodium Chloride Flush 3 Ml Syringe) 3 ml IVFLUSH QSHIFT [facility] Last Admin: 12/05/20 09:35 Dose: 3 ml Documented by: CASSY Tamsulosin HCl (Tamsulosin Hcl 0.4 Mg Capsule) 0.4 mg PO DAILY [facility] Last Admin: 12/05/20 09:34 Dose: 0.4 mg Documented by: CASSY Labs CBC & Chem 7: 12/03/20 08:59 12/03/20 08:59 Labs: Laboratory Results - last 24 hr 12/05/20 07:22 POC Glucose 88 Microbiology Microbiology Results: Microbiology 12/02/20 14:44 Blood Culture - Preliminary Blood - Venous No growth after 48 hours. 12/02/20 14:44 Blood Culture - Preliminary Blood - Venous No growth after 48 hours. Assessment and Plan (1) Encephalopathy: Status: Acute Assessment and Plan: 80-year-old male with 3 previous episodes of strokes presents to the hospital by his daughter with complaints of altered mentation and change of his baseline # AMS/Aphasia, some weaknessl--no stroke on CT, MRI was distorted by motion, it is still possible he had stroke -conservative management at this with BP control, no aspirin d/t xarelto, statin. EEG shows diffuse encephalopathy # history of DVT - continue Xarelto # history of CAD - continue carvedilol # hypertension - stable - continue carvedilol #Dysphagia--speech recommend NDD3, and thin liquid DVT prophylaxis:? Xarelto PT to reassess today, they have been unable to do asssessment, discuss with daughter and didn't want agresive management Quality Stroke Does the patient have a stroke diagnosis?: No VTE Prior VTE?: No VTE Risk Level:: Medical - moderate - high VTE Device Contraindication: Treatment Not Indicated VTE Drug Contraindication: N/A - Med Ordered
--- NOTE | 2020-12-05 15:12 | MHC.CM.PN ---
CM SPOKE TO PTS DAUGHTER/TRIAGE CLINICIAN, THOR ([phone]) WHO REPORTS SHE WAS HOPING THE PT COULD GO TO [place] BUT IS ALSO AGREEABLE TO [place]. SHE REQUESTS THAT IF PT IS UNABLE TO GO TO [place], REFERRALS BE MADE TO [place] AT [facility]. REFERRALS PLACED. SNFS INDICATED [facility] WAS PTS PRIMARY [facility]URANCE WHICH THEY ARE NOT CONTRACTED WITH CM CALLED THOR BACK, SHE INDICATED THIS WAS INCORRECT. MEDICARE SHOULD BE THE PTS PRIMARY INSURANCE. SNF GIVEN THE ABOVE INFO ALL 3 ACUTE REHABS HAVE DECLINED REFERRAL THEY DO NOT FEEL THE PT IS ABLE TO COMPLETE THE REQUIRED THERAPY
[2020-12-06] VITALS (8 sets, daily range): BP systolic 142–180; BP diastolic 56–96; PULSE 56–71; RESP 14–20; TEMP 36.6–37.2; O2SAT 95–97
[2020-12-06] MEDS: carvediloL 6.25 MG TABLET PO ×2 (08:41→21:02)
[2020-12-06] MEDS: Omeprazole 20 MG CAPSULE.DR PO (08:41)
[2020-12-06] MEDS: Rivaroxaban 20 MG TABLET PO (08:41)
[2020-12-06] MEDS: Tamsulosin HCL 0.4 MG CAPSULE PO (08:41)
[2020-12-06] MEDS: Escitalopram Oxalate 5 MG TABLET PO (08:42)
[2020-12-06] MEDS: 0.9 % Sodium Chloride Flush 3 ML SYRINGE IVFLUSH ×3 (08:42→21:02)
--- NOTE | 2020-12-06 14:06 | HO.PM.IMPN ---
Subjective Subjective Date of Service: 12/06/20 Interval History: Pt quite sleepy but generally strength and language have improved, per his daughter, with whom he lives Review of Systems Review of Systems: Yes Unobtainable due to mental status Physical Exam Vital Signs: Vital Signs: Last Vital Signs Temp 98.4 F 12/06/20 12:00 Pulse 64 12/06/20 12:00 Resp 18 12/06/20 12:00 BP 142/56 H 12/06/20 12:00 Pulse Ox 96 12/06/20 12:00 Body Mass Index 30.5 Gen: in no acute distress HEENT: sclera anicteric, moist mucus membranes Neck: supple Lungs: clear to auscultation bilaterally Heart: irregularly irregular, no murmurs Abd: soft, non-tender, non-distended Ext: no edema Skin: warm/well-perfused Neuro: somnolent but arousable, no facial droop, strength diffusely decreased Psych: impaired insight Objective Data Active Medications Acetaminophen (Acetaminophen 325 Mg Tablet) 650 mg PO Q6H PRN PRN Reason: Pain, Mild (Pain Scale 1-3) Last Admin: 12/05/20 17:06 Dose: 650 mg Documented by: CASSY Carvedilol (Carvedilol 6.25 Mg Tablet) 6.25 mg PO BID [facility]; Protocol Last Admin: 12/06/20 08:41 Dose: 6.25 mg Documented by: TAMEKA Docusate Sodium (Docusate Sodium 100 Mg Capsule) 100 mg PO DAILY PRN PRN Reason: Constipation Escitalopram Oxalate (Escitalopram Oxalate 5 Mg Tablet) 5 mg PO DAILY [facility] Last Admin: 12/06/20 08:42 Dose: 5 mg Documented by: TAMEKA Morphine Sulfate (Morphine Sulfate 2 Mg/Ml Cartridge) 1 mg IVPUSH Q4H PRN; Protocol PRN Reason: Pain, Severe (Pain Scale 7-10) Omeprazole (Omeprazole 20 Mg Capsule.) 20 mg PO DAILY [facility] Last Admin: 12/06/20 08:41 Dose: 20 mg Documented by: TAMEKA Ondansetron HCl (Ondansetron Hcl 4 Mg/2 Ml Vial) 4 mg IVPUSH Q8H PRN PRN Reason: Nausea and Vomiting Rivaroxaban (Rivaroxaban 20 Mg Tablet) 20 mg PO DAILY [facility] Last Admin: 12/06/20 08:41 Dose: 20 mg Documented by: TAMEKA Sodium Chloride (0.9 % Sodium Chloride Flush 3 Ml Syringe) 3 ml IVFLUSH QSHIFT [facility] Last Admin: 12/06/20 08:42 Dose: 3 ml Documented by: TAMEKA Tamsulosin HCl (Tamsulosin Hcl 0.4 Mg Capsule) 0.4 mg PO DAILY [facility] Last Admin: 12/06/20 08:41 Dose: 0.4 mg Documented by: TAMEKA Labs CBC & Chem 7: 12/03/20 08:59 12/03/20 08:59 Assessment and Plan (1) Encephalopathy: Status: Acute Assessment and Plan: hospital d#5 80yo M with 3 prior CVA admitted with concern for recurrent CVA due to altered mental status with worsening LLE weakness, possible aphasia # AMS/encephalopathy # aphasia # leg weakness - resolved, CT without acute findings, MRI distorted by motion but shows possible small infarcts in L parietal lobe - per discussion with family and Neurology, conservative management with BP control, anticoagulation with rivaroxaban, statin - EEG with diffuse encephalopathy - 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
[2020-12-07 03:39] VITALS: BP 102/54; PULSE 63; RESP 14; TEMP 37; O2SAT 96
[2020-12-07 07:20] VITALS: BP 162/79; PULSE 60; RESP 18; TEMP 36.9; O2SAT 98
[2020-12-07 08:41] VITALS: BP 162/79; PULSE 60
[2020-12-07] MEDS: carvediloL 6.25 MG TABLET PO (08:41)
[2020-12-07] MEDS: Rivaroxaban 20 MG TABLET PO (08:41)
[2020-12-07] MEDS: Escitalopram Oxalate 5 MG TABLET PO (08:41)
[2020-12-07] MEDS: Tamsulosin HCL 0.4 MG CAPSULE PO (08:41)
[2020-12-07] MEDS: Omeprazole 20 MG CAPSULE.DR PO (08:41)
[2020-12-07] MEDS: 0.9 % Sodium Chloride Flush 3 ML SYRINGE IVFLUSH (08:41)
[2020-12-07 09:51] VITALS: BP 162/79; PULSE 60
--- NOTE | 2020-12-07 10:35 | MHC.SL.SWA ---
Speech Pathologist Impression: Risk of Aspiration Oralpharyngeal Dysphagia Risk of Aspiration Due to: Neurological Condition Reduced Cognition Dysphasia Diet Status: No Change Liquid Consistency and Strategies for Safe Swallow: Liquid Intake Recommendation: Thin Liquid Intake Strategies: Small Sips No Straws Solid Food Consistency: Dietary Recommendations: Chopped/Advanced (NDD3) Additional Modifications to Solid Foods: Plan for speech-language screening/ functional communication screening tomorrow morning. Patient is on appropriate diet textures- CHOPPED/ADVANCED (NDD3) solids, THIN liquids, and CRUSHED pills in PUREE. This is his baseline diet. Patient requires 1:1 assistance feeding. Aspiration precautions apply. Oral Medication Intake: Crushed with Puree Compensatory Strategies and Precautions to be Taken for Safe Swallow: Small Bites and Sips Alternate Liquids/Solids Oral Check Supervision While Eating and Drinking for Safe Swallow: Total Assistance Swallowing Recommended Treatments: Compens. Strategy Educat. Recommendation for Speech: Inpatient Speech Therapy for Aphasia Fabrication Engineer Clinican/Clinical Fellow: No Supervisory Statement: I have reviewed and agree with the student/clinical fellow's documentation: N/A Speech Language Pathologist: Meenu Sheldon M.A., CCC-MOUNTER [employer]IN[employer]
[2020-12-07 11:35] VITALS: BP 137/65; PULSE 50; RESP 18; TEMP 36.6; O2SAT 99
--- NOTE | 2020-12-07 12:01 | MHC.CM.PN ---
Addendum entered by Flores Hunter 12/07/20 12:36: TRANSPORT SCHEDULED FOR 1430 HOURS. PTS DAUGHTER WAS INFORMED AT BEDSIDE AND REPORTS SHE WILL MEET THE PT AT THE SNF Original Note: PTS DAUGHTER CALLED AND INDICATED THEY WOULD ACCEPT THE BED OFFER FROM [facility] FOR [facility]. DBV WAS NOTIFIED. TIME TBD, PT WILL BE TRANSPORTED VIA BLS
--- NOTE | 2020-12-07 12:04 | PM.DS ---
DS: Providers Provider Date of Service: 12/07/20 Date of admission: 12/02/20 22:41 Primary care physician: Daniel Boone MD Consults: 12/02/20 23:25 Consult to Neurology Routine Consulting Provider: [facility] Reason for consultation: TIA vs stroke Has provider been notified: No DS: Diagnosis Discharge Diagnosis (1) Encephalopathy: Status: Acute DS: Summary Hospital Course Hospital Course: Chief Complaint: Aphasia This is an 80-year-old male with past medical history of AFib, CAD, DVT, late stage dementia, HTN, history of multiple CVA who presents to the hospital with complaints of altered mentation by his daughter who lives with him.? Patient himself is able to nod yes or no to simple questions but unable to give much history.? Daughter at bedside reports that this is not normal for him.? She reports that he is quiet at baseline but communicative.? Does usually answer questions with yes or no and is able to follow commands appropriately.? Patient daughter reports that when he woke up this morning he was not communicating.? Not following command, and not able to verbalize his knees when he usually does.? She also noted him to be weaker on his chronically weak left side. Review system cannot be completed at patient is not verbalizing and not following commands appropriately On arrival to the ED patient hemodynamically stable with no significant abnormal vitals Labs are significant for 6.6, hemoglobin of 12.7, otherwise unremarkable.? Head and neck CT angiogram shows no evidence of acute intracranial hemorrhage or edematous territorial infarction.? Chronic encephalomalacia of the right occipital partial lobe, CT of the head and neck without proximal occlusion, arthrosclerotic disease cause of 60-65 % stenosis of the origin of the internal carotid artery bilaterally.? Moderate atherosclerotic disease of the a to NM to of the distal branches of the ESTRADA and MCA. Hospital course: Patient presented with altered mental status with aphasia and some leg weakness. Initial head CT did not show acute finding but but the possibility of stroke remained. He was seen by Neurology and subsequently MRI was done but he was unable to lay still and therefore was highly distorted by artifact, it is therefore probable that patient may have suffered an acute stroke and will be treated medicall with blood pressure controll, statin and will avoid aspirin on top Xarelto to prevent bleeding complication. Aphasia seeems a bit better, leg weakness has improved. She had an EEG that showed diffuse encephalopathy which is proably contributing to his presentation. PT and OT saw him and recommend short term rehab. Speech recommends pureee NDD3 with thin liquid and superverision. Coruse of of treatement has been communicated with his daughter along the way # history of DVT - continue rivaroxaban # chronic atrial fibrilation - continue carvedilol + rivaroxaban # history of CAD - continue carvedilol + rivaroxaban # history HTN - continue carvedilol # dysphagia - seen by speech therapy, NDD3 solids + thin liquids Dispo: to Short term rehab Time Spent with Patient Time attestation: Total time spent providing and/or coordinating discharge services: Discharge coordination time: Greater than 30 minutes Quality: Stroke Does the patient have a stroke diagnosis?: Yes Reason for No Anti-thrombotic at DC: N/A - Med Ordered Reason for No Anticoagulant at DC: N/A - Med Ordered Reason Not Initiating IV-Tpa: Contraindicated Reason for No Anti-thrombotic by Day Two: N/A - Med Ordered Reason for No Statin at DC: N/A - Med Ordered Physical Exam Vital Signs: Vital Signs: Last Vital Signs Temp 97.9 F 12/07/20 11:35 Pulse 50 12/07/20 11:35 Resp 18 12/07/20 11:35 BP 137/65 12/07/20 11:35 Pulse Ox 99 12/07/20 11:35 Body Mass Index 30.5 DS: Data Data Completed and Pending Labs on day of discharge: Preliminary micro results at discharge 12/02/20 14:44 Blood Culture - Preliminary Blood - Venous No growth after 48 hours. 12/02/20 14:44 Blood Culture - Preliminary Blood - Venous No growth after 48 hours. Discharge Plan Discharge Anticipated Discharge Date/Time: 12/07/20 12:03 Patient Disposition: Xfer SNF Discharge Diagnosis: Encephalopathy, CVA Referrals: [facility] [Outside] - 1 Week Daniel Boone MD [Primary Care Provider] - 1 Week Discharge Medications: New atorvastatin [Lipitor] 20 mg tablet 20 mg PO BEDTIME Qty: 30 RF: 0 Continued carvedilol 6.25 mg tablet 1 tab PO BID RF: 0 citalopram 10 mg tablet 1 tab PO DAILY RF: 0 tamsulosin 0.4 mg capsule 1 cap PO DAILY RF: 0 omeprazole 20 mg capsule,delayed release(DR/EC) 1 cap PO DAILY RF: 0 Xarelto 20 mg tablet 1 tab PO DAILY RF: 0 Discharge Orders: Discharge Order (Routine); Ordered 12/07/20 Ordered By: Spencer Thomas Diet: advance to usual diet Activity on Discharge: As tolerated Stand Alone Forms: Patient Portal Discharge page Care Plan Goals: Short term rehab, and no new stroke Health Concerns: dementia, stroke, dysphagia, Plan of Treatment: short term rehab, take cholesterol medication, blood pressure medication Assessment: as above
[2020-12-07 12:29] LABS: COVID-19 Test Negative (Negative)
== END 2020-12-07 15:14 | disposition skilled nursing facility (03) | DRG 65 ==
LOC: HO.ED 12-03 08:36 → HO.EDOVER 12-03 10:19 → HO.IMC 12-03 17:48
PROVIDERS: Emergency Medicine; Physician Assistant; Admitting Provider Internal Medicine; Emergency Provider Emergency Medicine; PCP Internal Medicine Medical Oncology; Visit Provider Internal Medicine
DX: I63.9 Cerebral infarction, unspecified (principal); G81.94 Hemiplegia, unspecified affecting left nondominant side; I48.20 Chronic atrial fibrillation, unspecified; G93.40 Encephalopathy, unspecified; I25.10 Atherosclerotic heart disease of native coronary artery without angina pectoris; F03.90 Unspecified dementia, unspecified severity, without behavioral disturbance, psychotic disturbance, mood disturbance, and anxiety; R47.01 Aphasia; Z86.718 Personal history of other venous thrombosis and embolism; Z86.73 Personal history of transient ischemic attack (TIA), and cerebral infarction without residual deficits; Z20.822 Contact with and (suspected) exposure to COVID-19; Z87.891 Personal history of nicotine dependence; Z79.01 Long term (current) use of anticoagulants; Z79.899 Other long term (current) drug therapy
CPT/HCPCS: 36415; 70496; 70498; 70551; 71045; 80048; 81003; 82947; 83605; 84484; 85025; 85610; 85730; 87040; 87635; 92610; 93005; 95816; 96361; 96374; 97110; 97162; 97163; 99219; 99285; J2060; Q9967

== ENCOUNTER 2020-12-09 15:58 | Emergency (ER) | payer MEDICARE, SELFPAY ==
--- NOTE | ~2020-12-09 | XR_ITS ---
EXAMINATION: XR CHEST CLINICAL INFORMATION: Chest pain COMPARISON: Chest x-ray December 02, 2020 TECHNIQUE: Frontal portable view of the chest was obtained. 4:42 PM FINDINGS: Lungs are clear. No pulmonary vascular congestion. There is no pleural effusion. The heart size is normal. The cardiac and mediastinal contours are normal. There are calcifications of the thoracic aorta. There are multilevel degenerative changes of dorsal spine. XR/XR chest 1V IMPRESSION: Unremarkable examination.
--- NOTE | ~2020-12-09 | CT_ITS ---
EXAMINATION: CT HEAD WITHOUT CONTRAST CLINICAL INFORMATION: Altered mental status. Concern for stroke. COMPARISON: CT angiogram head and neck December 02, 2020. MR brain December 03, 2020 TECHNIQUE: Contiguous axial imaging was performed from the skull base to vertex without intravenous administration of contrast. Coronal and sagittal reformatted images are performed at the CT scanner. [This CT examination was performed using dose optimization techniques as appropriate, variously including the following: *Automated exposure control *Adjustment of mA and/or kV according to patient size (this includes techniques or standardized protocols for targeted exams where dose is matched to indication/reason for exam; i.e. extremities or head) *Use of iterative reconstruction technique] DLP: 780 mGy-cm. FINDINGS: There is generalized global volume loss. There is marked prominence of the ventricles and the sulci . There is marked hypodensity of the periventricular white matter due to chronic small vessel ischemic disease. There are vascular calcifications of the internal carotid arteries bilaterally. Focal chronic infarct with encephalomalacia in the right occipital lobe. There are multiple old infarcts involving the bilateral frontal lobes and parietal lobes, left cerebellar lobe. Old lacunar infarct in the right hailey. There is no evidence of acute intracranial hemorrhage or acute territorial infarction. No abnormal mass-effect or midline shift is seen. Bal to white matter differentiation is well preserved. No extra-axial fluid collections are identified. There is no osseous abnormality. Chronically opacified left frontal sinus. There is normal aeration of the mastoid air cells and middle ear cavities. CT/CT head/brain wo con IMPRESSION: 1. No acute intracranial abnormality. 2. Stable chronic changes of multifocal infarcts and marked cerebral atrophy.
[2020-12-09 16:09] VITALS: BP 127/73; BP 144/71; PULSE 57; RESP 20; TEMP 36.6; O2SAT 97; BMI 33.4
--- NOTE | 2020-12-09 16:16 | ECG_ITS ---
Test Reason : AMS Blood Pressure : / mmHG Vent. Rate : 058 BPM Atrial Rate : 000 BPM P-R Int : 000 ms QRS Dur : 084 ms QT Int : 462 ms P-R-T Axes : 000 -27 -12 degrees QTc Int : 453 ms Atrial fibrillation with slow ventricular response Nonspecific ST abnormality Left axis deviation RSR' or QR pattern in V1 suggests right ventricular conduction delay Abnormal ECG When compared with ECG of 02-DEC-2020 16:59, No significant change was found Referred By: Scot Padron Electronically Signed By:PHILL HOWARD MD
[2020-12-09 16:21] LABS: Glucose, Whole Blood 91 mg/dL (60-115)
--- NOTE | 2020-12-09 16:25 | ED.AMS ---
HPI - Altered Mental Status General Chief Complaint: Altered Mental Status Stated Complaint: lethargy dementia Time Seen by Provider: 12/09/20 16:09 Source: family and EMS Mode of arrival: EMS History of Present Illness HPI narrative: mental status changes this am around 9 better now,Pt has hx of dementia/CVA he is currently in NH,sent for eval by [facility] because more lethargic,no fevr,no vomiting. MD complaint: altered mental status Onset (ago): hour(s) (7) Timing confirmed by: family member Severity: moderate Consistency of symptoms: waxing and waning Context: other (dementia) Associated symptoms: denies other symptoms Related Data Home Medications Medication Instructions Recorded Confirmed carvedilol 6.25 mg tablet 1 tab PO BID 12/02/20 12/02/20 citalopram 10 mg tablet 1 tab PO DAILY 12/02/20 12/02/20 omeprazole 20 mg capsule,delayed 1 cap PO DAILY 12/02/20 12/02/20 release rivaroxaban 20 mg tablet (Xarelto) 1 tab PO DAILY 12/02/20 12/02/20 tamsulosin 0.4 mg capsule 1 cap PO DAILY 12/02/20 12/02/20 Previous Rx's Medication Instructions Recorded atorvastatin 20 mg tablet (Lipitor) 20 mg PO BEDTIME #30 tab 12/07/20 Allergies Allergy/AdvReac Type Severity Reaction Status Date / Time No Known Allergies Allergy Verified 12/02/20 20:47 [No Known Allergies*] Review of Systems Review of Systems: Yes all other systems are reviewed and are negative Constitutional: Constitutional: Reports no additional constitutional complaints Cardiovascular: Cardiovascular: Denies chest pain and Denies dyspnea Respiratory: Respiratory: Denies dyspnea and Denies wheezing Gastrointestinal: Gastrointestinal: Denies coffee ground emesis Allergic/Immunologic: Allergic/Immunologic: Denies wheezing [facility] Past Medical History Medical History A-fib CAD (coronary artery disease) CVA (cerebral vascular accident) Dementia DVT (deep venous thrombosis) HTN (hypertension) Surgical History Hx of cholecystectomy S/P IVC filter Social History Social History Household Members: Children Housing: House Do you presently have visiting nurse or other home services: Yes Alcohol intake: never Patient Tobacco Use Status: Former Tobacco user Use of substances other than those prescribed or required for medical reasons: No Advance Directives: No Advance Directives Information Provided: No service: Yes Current occupational status: retired Physical Exam Vital Signs: Vital Signs: Last Vital Signs Temp 97.9 F 12/09/20 16:09 Pulse 57 12/09/20 16:09 Resp 20 12/09/20 16:09 BP 144/71 H 12/09/20 16:09 Pulse Ox 97 12/09/20 16:09 Body Mass Index 33.4 Const: General: cooperative HENMT: Head: Yes normal to inspection Face and sinus: Yes normal facial exam Mouth: Normal oral and palatal mucosa present Throat: Yes posterior oropharynx normal Neck: Neck: Yes normal visual inspection and Yes full ROM Chest: Chest palpation & inspection: normal inspection of the chest Resp: Effort & Inspection: normal respiratory effort Auscultation: clear to auscultation bilaterally Cardio: Jugular venous distension: no JVD Rate: regular rate Rhythm: regular rhythm GI: Inspection: Yes normal to inspection Palpation (GI): Soft to palpation, not firm, nontender and no guarding Skin: General skin exam: no rashes or lesions noted and elasticity normal Lesions: no lesions Rashes: no rashes Neuro: General: other (awake and alert follow simple command,no decicit in strenght) Course Course Course Narrative: doing better ,spoke with daughter pt is DNR/I,w/u negative UA few WBC but negative nitrate will wait for culture Reevaluation(s) Reevaluation #1: improving spoke at [facility] with daughter ,Head ct negative,he has few WBC in urine but negative nitrate will wait for culture MDM - Altered Mental Status MDM Narrative Medical decision making narrative: spoke with daughter at [facility],at baseline no ambulatory has advancend dementia and recent CVA,will get head ct and basic lab Lab Data Attestation: I reviewed the patient's lab results. Result diagrams: 12/09/20 16:54 12/09/20 16:54 Labs: Lab Results 12/09/20 12/09/20 12/09/20 Range/Units 16:10 16:54 16:54 WBC 8.0 (4.8-10.8) X10*3/uL RBC 4.61 (4.60-5.80) X10*6/uL Hgb 13.0 L (14.0-18.0) g/dl Hct 40.0 L (42-52) % MCV 86.8 (80-98) fL MCH 28.2 (27.0-33.0) pg MCHC 32.5 (31.0-36.0) g/dl RDW 16.6 H (11.0-16.0) % Plt Count 232 (160-400) X10*3/uL MPV 9.1 L (9.4-12.4) fL Immature Gran % (Auto) 0.2 (0.0-0.4) % Neut % (Auto) 55.1 (45-73) % Lymph % (Auto) 28.0 (20-40) % [place] % (Auto) 11.7 H (2-11) % Eos % (Auto) 4.6 H (0-4) % Baso % (Auto) 0.4 (0-2) % Lymph # (Auto) 2.2 (1.2-4.9) X10*3/uL [place] # (Auto) 0.9 (0.1-1.2) X10*3/uL Eos # (Auto) 0.4 (0.0-0.4) X10*3/uL Baso # (Auto) 0.0 (0.0-0.2) X10*3/uL Abs Immat Gran (auto) 0.02 (0.00-0.03) X10*3/uL Absolute Neuts (auto) 4.4 (2.0-8.3) X10*3/uL Absolute Nucleated RBC 0.000 (0.0-0.012) X10*3/uL Nucleated RBC % (auto) 0.0 (0.0-0.2) /100WBC Sodium 138 (135-145) mmol/L Potassium 4.0 (3.3-5.1) mmol/L Chloride 105 (96-108) mmol/L Carbon Dioxide 26 (22-29) mmol/L Anion Gap 11 L (12-20) BUN 14 (9-16) mg/dL Creatinine 1.06 (0.5-1.4) mg/dL Estim Creat Clear Calc 63.4 Estimated GFR > 60 POC Glucose 91 (60-115) mg/dL Random Glucose 91 (60-115) mg/dL Calcium 8.8 (8.4-10.2) mg/dL Total Bilirubin 0.7 (0.0-1.0) mg/dL AST 13 (5-37) U/L ALT 9 (0-40) U/L Alkaline Phosphatase 67 (39-117) U/L Troponin I High Sens (<3.5-35.0) ng/L Total Protein 6.6 (6.5-8.0) g/dL Albumin 3.8 (3.5-5.0) g/dL Urine Color Urine Appearance Urine pH (5.0-8.0) Ur Specific [place] (1.005-1.025) Urine Protein (NEG-TRACE) MG/DL Urine Glucose (UA) (NEG) MG/DL Urine Ketones (NEG) MG/DL Urine Blood (NEG) Urine Nitrite (NEG) Ur Leukocyte Esterase (NEG) Urine RBC (0) /HPF Urine WBC (0-4) /HPF Ur Squamous Epith Cells /LPF Urine Bacteria /LPF 12/09/20 12/09/20 Range/Units 16:54 17:16 WBC (4.8-10.8) X10*3/uL RBC (4.60-5.80) X10*6/uL Hgb (14.0-18.0) g/dl Hct (42-52) % MCV (80-98) fL MCH (27.0-33.0) pg MCHC (31.0-36.0) g/dl RDW (11.0-16.0) % Plt Count (160-400) X10*3/uL MPV (9.4-12.4) fL Immature Gran % (Auto) (0.0-0.4) % Neut % (Auto) (45-73) % Lymph % (Auto) (20-40) % [place] % (Auto) (2-11) % Eos % (Auto) (0-4) % Baso % (Auto) (0-2) % Lymph # (Auto) (1.2-4.9) X10*3/uL [place] # (Auto) (0.1-1.2) X10*3/uL Eos # (Auto) (0.0-0.4) X10*3/uL Baso # (Auto) (0.0-0.2) X10*3/uL Abs Immat Gran (auto) (0.00-0.03) X10*3/uL Absolute Neuts (auto) (2.0-8.3) X10*3/uL Absolute Nucleated RBC (0.0-0.012) X10*3/uL Nucleated RBC % (auto) (0.0-0.2) /100WBC Sodium (135-145) mmol/L Potassium (3.3-5.1) mmol/L Chloride (96-108) mmol/L Carbon Dioxide (22-29) mmol/L Anion Gap (12-20) BUN (9-16) mg/dL Creatinine (0.5-1.4) mg/dL Estim Creat Clear Calc Estimated GFR POC Glucose (60-115) mg/dL Random Glucose (60-115) mg/dL Calcium (8.4-10.2) mg/dL Total Bilirubin (0.0-1.0) mg/dL AST (5-37) U/L ALT (0-40) U/L Alkaline Phosphatase (39-117) U/L Troponin I High Sens 14.6 (<3.5-35.0) ng/L Total Protein (6.5-8.0) g/dL Albumin (3.5-5.0) g/dL Urine Color YELLOW Urine Appearance CLEAR Urine pH 6.0 (5.0-8.0) Ur Specific [place] 1.025 (1.005-1.025) Urine Protein NEG (NEG-TRACE) MG/DL Urine Glucose (UA) NEG (NEG) MG/DL Urine Ketones NEG (NEG) MG/DL Urine Blood 2+ H (NEG) Urine Nitrite NEG (NEG) Ur Leukocyte Esterase NEG (NEG) Urine RBC 30-49 H (0) /HPF Urine WBC 0 (0-4) /HPF Ur Squamous Epith Cells TRACE /LPF Urine Bacteria NONE /LPF Imaging Data CT scan - head: Radiologist's impression: NAD Discharge Plan Discharge Clinical Impression: Altered mental status Patient Disposition: Xfer [facility] Instructions: Altered Mental Status (ED) Prescriptions: No Action carvedilol 6.25 mg tablet 1 tab PO BID RF: 0 citalopram 10 mg tablet 1 tab PO DAILY RF: 0 tamsulosin 0.4 mg capsule 1 cap PO DAILY RF: 0 omeprazole 20 mg capsule,delayed release(DR/EC) 1 cap PO DAILY RF: 0 Xarelto 20 mg tablet 1 tab PO DAILY RF: 0 atorvastatin [Lipitor] 20 mg tablet 20 mg PO BEDTIME Qty: 30 RF: 0 Referrals: Daniel Boone MD [Primary Care Provider] - 2 days
[2020-12-09 16:58] LABS: MANUAL DIFF FLAG NO
[2020-12-09 16:59] LABS: Basophils Percent Auto 0.4 % (0-2); Eosinophils Absolute Auto 0.4 X10*3/uL (0.0-0.4); Eosinophils Percent Auto 4.6 % (0-4); Imm Gran Abs Auto 0.02 X10*3/uL (0.00-0.03); Imm Gran Pct Auto 0.2 % (0.0-0.4); Lymphocytes Absolute Auto 2.2 X10*3/uL (1.2-4.9); Mean Corpuscular HGB Conc 32.5 g/dl (31.0-36.0); Mean Corpuscular Hemoglobin 28.2 pg (27.0-33.0); Mean Corpuscular Volume 86.8 fL (80-98); Mean Platelet Volume 9.1 fL (9.4-12.4); Monocytes Absolute Auto 0.9 X10*3/uL (0.1-1.2); Monocytes Percent Auto 11.7 % (2-11); Neutrophils Absolute Auto 4.4 X10*3/uL (2.0-8.3); Neutrophils Percent Auto 55.1 % (45-73); Platelet Count 232 X10*3/uL (160-400); Red Blood Count 4.61 X10*6/uL (4.60-5.80); Red Cell Distribution Width 16.6 % (11.0-16.0)
--- NOTE | 2020-12-09 17:16 | PC.NURSE ---
pt resting in the stretcher with eyes, respirations even and unlabored, according to the daughter pt at the [facility] for rehab since monday due to a stroke pt had, pt does have dementia at baseline but according to the daughter today pt not even opening his eyes or following any simple commands, while in the ed pt arousable to voice command, at one point reports having a headache then in few min will states that he does not have a headache, no visible facial droop, no hand drift, grasp strong and equal, moving all extremities, a-fib on the monitor vs stable.
[2020-12-09 17:23] LABS: Alanine Aminotransferase 9 U/L (0-40); Albumin Level 3.8 g/dL (3.5-5.0); Alkaline Phosphatase 67 U/L (39-117); Anion Gap 11 (12-20); Aspartate Amino Transferase 13 U/L (5-37); Bilirubin Total 0.7 mg/dL (0.0-1.0); Blood Urea Nitrogen 14 mg/dL (9-16); Calcium 8.8 mg/dL (8.4-10.2); Carbon Dioxide 26 mmol/L (22-29); Chloride 105 mmol/L (96-108); Creatinine Clr Calc Pharmacy 63.4; Estimated Glomerular Filt Rate > 60; Glucose Random 91 mg/dL (60-115); Sodium 138 mmol/L (135-145); Total Protein 6.6 g/dL (6.5-8.0)
[2020-12-09 17:24] LABS: Appearance Urine CLEAR; Color Urine YELLOW; Glucose Urine UA NEG (NEG); Leukocyte Esterase Urine NEG (NEG); Nitrite Urine NEG (NEG); Specific Gravity - Urine 1.025 (1.005-1.025); UACC Culture Trigger NO; Urine Blood 2+ (NEG); Urine Ketones NEG (NEG); Urine Protein NEG (NEG-TRACE)
[2020-12-09 17:29] LABS: Troponin-I High Sensitivity 14.6 ng/L (<3.5-35.0)
[2020-12-09 17:35] LABS: Squamous Epithelial Cell Urine TRACE /LPF
[2020-12-09 17:36] LABS: RBC Urine 30-49 /HPF (0); WBC Urine 0 /HPF (0-4)
== END 2020-12-09 19:38 | disposition skilled nursing facility (03) ==
PROVIDERS: Emergency Provider Emergency Medicine; PCP Internal Medicine Medical Oncology
DX: R41.82 Altered mental status, unspecified (principal); F03.90 Unspecified dementia, unspecified severity, without behavioral disturbance, psychotic disturbance, mood disturbance, and anxiety; I25.10 Atherosclerotic heart disease of native coronary artery without angina pectoris; I48.91 Unspecified atrial fibrillation; Z86.718 Personal history of other venous thrombosis and embolism; Z86.73 Personal history of transient ischemic attack (TIA), and cerebral infarction without residual deficits; Z79.01 Long term (current) use of anticoagulants
CPT/HCPCS: 36415; 70450; 71045; 80053; 81001; 82947; 84484; 85025; 93005; 99284; 99285

== ENCOUNTER 2021-05-11 18:00 | Outpatient (REF) | payer MEDICARE, SELFPAY ==
[2021-05-12 10:27] LABS: Appearance Urine CLEAR; Color Urine YELLOW; Glucose Urine UA NEG (NEG); Leukocyte Esterase Urine NEG (NEG); Nitrite Urine NEG (NEG); PH 5.5 (5.0-8.0); Urine Blood 3+ (NEG); Urine Ketones NEG (NEG); Urine Protein NEG (NEG-TRACE)
[2021-05-12 10:49] LABS: WBC Urine 0 /HPF (0-4)
[2021-05-12 10:50] LABS: Bacteria Urine TRACE /LPF; Squamous Epithelial Cell Urine TRACE /LPF; Urine Talc Crystals 3+ /LPF
== END 2021-05-11 18:01 | disposition home or self-care (01) ==
LOC: HO.LNP 18:00
PROVIDERS: Visit Provider Internal Medicine Medical Oncology
DX: R31.9 Hematuria, unspecified (principal)
CPT/HCPCS: 81001; 87086